=== PATIENT | male | born 1935 | race Caucasian/White ===

== ENCOUNTER → 2017-08-01 | Outpatient (CLI) | payer MEDICARE, BC ==
[2017-08-01 08:00] LABS: CHCM 34.1; HCT 43.4 % (39.0-53.0); HDW 2.36; HGB 14.8 gm/dL (13.0-17.5); MCH 34.1 pg (25.0-35.0); MCHC 34.1 g/dL (31.0-37.0); MCV 100.2 fL (80.0-100.0); Mean Platelet Volume 7.7; RBC 4.33 m/uL (4.30-5.90); RDW 13.5 % (11.5-15.5); WBC 8.2 k/uL (3.8-10.6)
[2017-08-01 08:22] LABS: ALT 30 U/L (21-72); AST 27 U/L (17-59); Alkaline Phosphatase 59 U/L (38-126); Anion Gap 10 mmol/L; Blood Urea Nitrogen 20 mg/dL (9-20); Calcium 9.2 mg/dL (8.4-10.2); Carbon Dioxide 22 mmol/L (22-30); Chloride 105 mmol/L (98-107); Cholesterol 106 mg/dL (<200); Glucose 126 mg/dL (74-99); HDL Cholesterol 51 mg/dL (40-60); Non-African American GFR(MDRD) >60 (>60 ml/min/1.73 sqM); Potassium 4.6 mmol/L (3.5-5.1); Sodium 137 mmol/L (137-145); Total Bilirubin 1.1 mg/dL (0.2-1.3); Total Protein 6.4 g/dL (6.3-8.2)
== END | disposition home or self-care (01) ==
LOC: LABWHC1 07:38
PROVIDERS: ATTEND Internal Medicine Cardiovascular Disease
DX: E78.5 Hyperlipidemia, unspecified (principal); I50.9 Heart failure, unspecified; I25.10 Atherosclerotic heart disease of native coronary artery without angina pectoris
CPT/HCPCS: 36415; 80053; 80061; 85027

== ENCOUNTER 2017-12-26 10:31 | Day surgery (SDC) | payer MEDICARE, BC ==
[2017-12-24 16:41] VITALS: BMI 29.9
[~2017-12-26 10:31] MED LIST: LACTATED RINGERS 1,000 ML IV SCH
[2017-12-26 11:28] VITALS: TEMP 98
[2017-12-26] MEDS ORDERED: LIDOCAINE 1% INJ 10MG/ML (20 ML MDV) ONE (11:33)
[2017-12-26] MEDS ORDERED: PROPOFOL 10 MG/ML 20 ML VIAL IV ONE (11:33)
--- NOTE | 2017-12-26 11:57 | P.PCN ---
Date of Procedure: 12/26/17 Procedure(s) Performed: BRIEF HISTORY: Patient is a 82-year-old pleasant [white male scheduled for an elective colonoscopy as a part of surveillance of long-standing history of ulcerative colitis. PROCEDURE PERFORMED: ColonoscopyWith biopsy. PREOPERATIVE DIAGNOSIS: long-standing history of ulcerative colitis. IV sedation per Anesthesia. PROCEDURE: After informed consent was obtained, the patient, was brought into the endoscopy unit. IV sedation was administered by Anesthesia under continuous monitoring. Digital rectal examination was normal. Initially the Olympus CF- 160 flexible video colonoscope was then inserted in the rectum, gradually advanced into the cecum without any difficulty. Careful examination was performed as the scope was gradually being withdrawn. Ileocecal valve and the appendiceal orifice were visualized and appeared normal. Prep was excellent. Mucosa of the cecum,appeared normal. In the ascending colon there was a 5 mm polyp that was removed by biopsy. The rest of the ascending colon, transverse colon, descending colon, sigmoid colon, and rectum appeared normal.random biopsies were done from every 10 cm intervals from the cecum to rectum. Scattered sigmoid diverticulosis seen. Retroflexion was performed in the rectum and no lesions were seen. The patient tolerated the procedure well. IMPRESSION: 5 mm ascending colon polyp status post removal by biopsy Scattered sigmoid diverticulosis No evidence of active colitis RECOMMENDATIONS: Findings of this examination were discussed with the patient as well as his family.he was advised to follow with the biopsy results. He will continue with current medications.
[2017-12-26 12:30] VITALS: BP 120/52; PULSE 60; RESP 16
--- NOTE | 2017-12-30 11:52 | CDI ---
Date: 12/30/17 CDS/Testing And Regulating Chief Name: Lola Espinoza Phone: If any questions, call Carmela Keenan Outreach Specialist at [phone] Patient Name: Max Betancourt Admit Date: 12/26/17 Discharge Date: 12/26/17 ATTENTION: The [facility] Coding Staff appreciate your assistance in clarifying documentation. Please respond to the clarification below the line at the bottom and electronically sign. The [facility] Coding staff will review the response and follow-up if needed. Please note: Queries are made part of the Legal Health Record. If you have any questions, please contact the Outreach Specialist. Dear Dr. Box, Please provide clarification as to what procedure was used to remove the polyp. Please clarify if it was a hot or cold biopsy. Thank you for your kind consideration. MTDD
--- NOTE | 2018-01-07 12:42 | CDI ---
Date: 01/07/18 CDS/Event Management Consultant Name: Lola Espinoza Phone: If any questions, call Carmela Keenan Administration Intern at [phone] Patient Name: Max Betancourt Admit Date: 12/26/17 Discharge Date: 12/26/17 ATTENTION: The [facility] Coding Staff appreciate your assistance in clarifying documentation. Please respond to the clarification below the line at the bottom and electronically sign. The [facility] Coding staff will review the response and follow-up if needed. Please note: Queries are made part of the Legal Health Record. If you have any questions, please contact the Administration Intern. Dear Dr. Box, Please provide clarification as to what procedure was used to remove the polyp. Please clarify if it was a hot or cold biopsy. Thank you for your kind consideration. MTDD
--- NOTE | 2018-01-09 09:58 | CDI ---
Date: 01/09/18 CDS/Harness Cleaner Name: Lola Espinoza Phone: If any questions, call Carmela Keenan Cap Cutter at [phone] Patient Name: Max Betancourt Admit Date: 12/26/17 Discharge Date: 12/26/17 ATTENTION: The [facility] Coding Staff appreciate your assistance in clarifying documentation. Please respond to the clarification below the line at the bottom and electronically sign. The [facility] Coding staff will review the response and follow-up if needed. Please note: Queries are made part of the Legal Health Record. If you have any questions, please contact the Cap Cutter. Dear Dr. Box, Please provide clarification as to what biopsy method was used to remove the polyp. Please clarify if it was a hot or cold biopsy. Thank you for your kind consideration, Thank you for your kind consideration. Cold biopsy done to remove the polyp MTDD
== END 2017-12-26 12:46 | disposition home or self-care (01) ==
LOC: ORWHC2ENDO 10:31
PROVIDERS: ATTEND Internal Medicine Gastroenterology
DX: D12.2 Benign neoplasm of ascending colon (principal); K57.30 Diverticulosis of large intestine without perforation or abscess without bleeding; K51.90 Ulcerative colitis, unspecified, without complications; K21.9 Gastro-esophageal reflux disease without esophagitis; I10 Essential (primary) hypertension; E78.5 Hyperlipidemia, unspecified; I48.91 Unspecified atrial fibrillation; Z79.01 Long term (current) use of anticoagulants; Z95.810 Presence of automatic (implantable) cardiac defibrillator; I25.2 Old myocardial infarction; G47.33 Obstructive sleep apnea (adult) (pediatric); Z99.89 Dependence on other enabling machines and devices; Z79.82 Long term (current) use of aspirin; Z79.899 Other long term (current) drug therapy
CPT/HCPCS: 88305; 45380; J2001; J2704

== ENCOUNTER → 2018-01-20 | Outpatient (CLI) | payer MEDICARE, BC ==
[2018-01-20 10:18] LABS: INR 1.1 (<1.2); Partial Thromboplastin Time 23.9 sec (22.0-30.0); Prothrombin Time 10.8 sec (9.0-12.0)
== END | disposition home or self-care (01) ==
LOC: LABWHC1 09:53
PROVIDERS: ATTEND Physical Medicine & Rehabilitation
DX: M50.121 Cervical disc disorder at C4-C5 level with radiculopathy (principal); M47.22 Other spondylosis with radiculopathy, cervical region; M43.12 Spondylolisthesis, cervical region
CPT/HCPCS: 36415; 85610; 85730

== ENCOUNTER → 2018-02-10 | Outpatient (CLI) | payer MEDICARE, BC ==
[2018-02-10 15:25] LABS: INR 1.1 (<1.2); Partial Thromboplastin Time 24.1 sec (22.0-30.0); Prothrombin Time 10.5 sec (9.0-12.0)
== END | disposition home or self-care (01) ==
LOC: LABWHC1 14:53
PROVIDERS: ATTEND Physical Medicine & Rehabilitation
DX: M50.121 Cervical disc disorder at C4-C5 level with radiculopathy (principal); M47.22 Other spondylosis with radiculopathy, cervical region; M43.12 Spondylolisthesis, cervical region
CPT/HCPCS: 36415; 85610; 85730

== ENCOUNTER → 2018-04-17 | Outpatient (CLI) | payer MEDICARE, BC ==
--- NOTE | 2018-04-17 15:04 | CT ---
EXAMINATION TYPE: CT cervical spine wo con DATE OF EXAM: 04/17/2018 COMPARISON: NONE HISTORY: Cervicalgia, spondylosis, cervical disc disorder C6-C7 with radiculopathy, cervical disc dis order C5-C6 level with radiculopathy, spondylolisthesis, and cervical disc disorder at C4-C5 level wi th radiculopathy all per order. CT DLP: 423.9 mGycm. Automated Exposure Control for Dose Reduction was Utilized. TECHNIQUE: CT scan of the cervical spine is obtained without contrast, axial images are obtained, sa gittal and coronal reformatted images are also reviewed. FINDINGS: Cervical spine is visualized in its entirety from C1 through upper thoracic levels, demonst rates levoconvex scoliosis centered in the mid cervical spine without evidence of acute fracture or d islocation. Prevertebral soft tissue appears within normal limits. The C1-C2 articulation is within normal limits on the coronal images. Vertebral body heights are maintained. There is moderate disc space narrowing right C4-C5 level with spurring and endplate sclerosis. There is mild to moderate disc space narrowing C5-C6 level. There is moderate to advanced disc space narrowing most prominent posterior left C6-C7 level on sagittal imag es. Review of axial images at C2-C3 level show some uncovertebral facet degenerative changes bilaterally, bilateral neural foramina are patent. There is central disc protrusion effacing anterior thecal sac on axial image 28. Axial images at C3-C4 level show right sided uncovertebral facet degenerative changes causing moderat e to advanced right-sided neural foraminal narrowing. Left-sided neural foramen is patent. Spinal can al is preserved. Axial images at C4-C5 level show posterior spur disc on flex effacing anterior thecal sac on axial im age 44. There is marginal spurring and right-sided uncovertebral facet degenerative changes causing a dvanced right-sided neural foraminal narrowing. Left-sided neural foramen is patent. Axial images at C5-C6 level show right-sided uncovertebral facet degenerative changes causing mild to moderate right greater than left neural foraminal narrowing. Spinal canal is preserved. Axial images at C6-C7 level show right-sided uncovertebral facet degenerative changes and left parace ntral/foraminal spur disc complex, this causes advanced left-sided neural foraminal narrowing on axia l image 55 and effacement of anterolateral thecal sac. There is more mild right-sided neural foramina l narrowing noted. Axial images at C7-T1 level are felt within normal limits. Thyroid gland is felt within normal limits. Visualized lung apices are clear. There is mild to modera te calcified plaque in both carotid arteries most prominent near left carotid bulb. There is prominen t extra-axial CSF in the visualized posterior fossa, left greater than right could reflect arachnoid cyst at this level in the superiormost axial images. IMPRESSION: Scoliotic curvature with multilevel degenerative changes as detailed above.
== END ==
LOC: RADCTMAIN 13:26
PROVIDERS: ATTEND Physical Medicine & Rehabilitation
DX: M41.9 Scoliosis, unspecified (principal); M48.02 Spinal stenosis, cervical region; M50.21 Other cervical disc displacement, high cervical region
CPT/HCPCS: 72125

== ENCOUNTER → 2018-04-21 | Outpatient (CLI) | payer MEDICARE, BC ==
[2018-04-21 11:20] LABS: ALT 39 U/L (21-72); AST 30 U/L (17-59); Albumin 4.1 g/dL (3.5-5.0); Alkaline Phosphatase 58 U/L (38-126); Anion Gap 12 mmol/L; Blood Urea Nitrogen 11 mg/dL (9-20); Calcium 9.2 mg/dL (8.4-10.2); Carbon Dioxide 25 mmol/L (22-30); Chloride 101 mmol/L (98-107); Cholesterol 95 mg/dL (<200); Glucose 106 mg/dL (74-99); HDL Cholesterol 54 mg/dL (40-60); LDL Cholesterol,Calculated 28 mg/dL (0-99); Potassium 4.6 mmol/L (3.5-5.1); Sodium 138 mmol/L (137-145); Total Bilirubin 0.9 mg/dL (0.2-1.3); Total Protein 5.8 g/dL (6.3-8.2); Triglycerides 63 mg/dL (<150)
[2018-04-21 11:38] LABS: Basophils % (A) 0 %; Eosinophils # (A) 0.2 k/uL (0-0.7); Eosinophils % (A) 3 %; HCT 41.9 % (39.0-53.0); Lymphocytes # (A) 1.5 k/uL (1.0-4.8); Lymphocytes % (A) 18 %; MCH 33.1 pg (25.0-35.0); MCHC 33.5 g/dL (31.0-37.0); MCV 98.6 fL (80.0-100.0); Mean Platelet Volume 7.4; Monocytes # (A) 0.6 k/uL (0-1.0); Monocytes % (A) 8 %; Neutrophils # (A) 5.3 k/uL (1.3-7.7); Neutrophils % (A) 66 %; Platelet Count 182 k/uL (150-450); RBC 4.25 m/uL (4.30-5.90); RDW 12.9 % (11.5-15.5)
== END | disposition home or self-care (01) ==
LOC: LABWHC1 10:08
PROVIDERS: ATTEND Internal Medicine Cardiovascular Disease
DX: I25.10 Atherosclerotic heart disease of native coronary artery without angina pectoris (principal); E78.5 Hyperlipidemia, unspecified
CPT/HCPCS: 36415; 80053; 80061; 85025

== ENCOUNTER → 2018-07-09 | Outpatient (CLI) | payer MEDICARE, BC | END | disposition home or self-care (01) | LOC: LABWHC1 09:37 | PROVIDERS: ATTEND Internal Medicine Gastroenterology | DX: R19.7 Diarrhea, unspecified (principal) | CPT/HCPCS: 83630; 87045; 87046; 87324; 87328; 87329 ==

== ENCOUNTER → 2018-09-01 | Outpatient (CLI) | payer MEDICARE, BC ==
[2018-09-01 12:47] LABS: INR 4.2 (<1.2); Prothrombin Time 37.4 sec (9.0-12.0)
== END ==
LOC: LABWHC1 11:39
PROVIDERS: ATTEND Internal Medicine Cardiovascular Disease
DX: I48.91 Unspecified atrial fibrillation (principal)
CPT/HCPCS: 36415; 85610

== ENCOUNTER 2018-10-10 09:57 | Observation (INO) | payer MEDICARE, BC ==
[2018-10-10] MEDS ORDERED: SODIUM CHLORIDE 0.9% 1,000 ML IV STA (10:41)
[2018-10-10 11:23] LABS: Basophils % (A) 0 %; Eosinophils # (A) 0.2 k/uL (0-0.7); Eosinophils % (A) 2 %; Lymphocytes # (A) 1.2 k/uL (1.0-4.8); Lymphocytes % (A) 14 %; MCH 32.2 pg (25.0-35.0); MCHC 32.5 g/dL (31.0-37.0); MCV 98.8 fL (80.0-100.0); Mean Platelet Volume 7.5; Monocytes # (A) 0.7 k/uL (0-1.0); Monocytes % (A) 7 %; Neutrophils # (A) 6.7 k/uL (1.3-7.7); Neutrophils % (A) 73 %; Platelet Count 206 k/uL (150-450); RBC 3.74 m/uL (4.30-5.90); RDW 13.3 % (11.5-15.5); WBC 9.2 k/uL (3.8-10.6)
[2018-10-10 11:27] LABS: INR 3.3 (<1.2); Partial Thromboplastin Time 35.6 sec (22.0-30.0); Prothrombin Time 29.6 sec (9.0-12.0)
[2018-10-10 11:40] LABS: ALT 28 U/L (21-72); AST 28 U/L (17-59); Albumin 3.1 g/dL (3.5-5.0); Alkaline Phosphatase 59 U/L (38-126); Anion Gap 6 mmol/L; Blood Urea Nitrogen 13 mg/dL (9-20); Calcium 8.8 mg/dL (8.4-10.2); Carbon Dioxide 23 mmol/L (22-30); Chloride 107 mmol/L (98-107); Glucose 110 mg/dL (74-99); Potassium 4.2 mmol/L (3.5-5.1); Sodium 136 mmol/L (137-145); Total Bilirubin 1.6 mg/dL (0.2-1.3); Total Protein 5.4 g/dL (6.3-8.2)
[2018-10-10 11:44] LABS: Appearance,Urine Clear (Clear); Bilirubin,Urine 1+ (Negative); Blood,Urine Negative (Negative); Color,Urine Dark Yellow; Glucose,Urine (UA) Negative (Negative); Ketones,Urine Negative (Negative); Leukocyte Esterase,Urine Negative (Negative); Nitrite,Urine Negative (Negative); Protein,Urine Trace (Negative); Specific Gravity,Urine 1.022 (1.001-1.035)
--- NOTE | 2018-10-10 11:48 | ED ---
General Adult HPI - General Chief complaint: Abdominal Pain Stated complaint: abdominal pain Time Seen by Provider: 10/10/18 10:30 Source: patient, RN notes reviewed Mode of arrival: ambulatory Limitations: no limitations - History of Present Illness Initial comments: Patient's an 83-year-old male presented to the emergency room today with a chief complaint of abdominal pain over the last week. Patient does admit that he's had some lower abdominal pain has been constant for a week. He states that [place] He states he thought he just pulled some muscles. He does admit that he is on Coumadin due to a stent in his heart. Patient states that he did notice some blood on the lower pelvis 2 days ago. Patient states that he doesn't know if any specific injury to the area. Patient advised to watch her symptoms. Patient denies any recent fever, chills, shortness of breath, chest pain, back pain, nausea or vomiting, numbness or tingling, dysuria or hematuria, constipation or diarrhea, headaches or visual changes, or any other complaints. - Related Data Home Medications Medication Instructions Recorded Confirmed Atorvastatin [Lipitor] 80 mg PO HS 06/16/14 12/26/17 Carvedilol [Coreg] 6.25 mg PO BID 06/16/14 12/24/17 Famotidine [Pepcid] 10 mg PO DAILY 06/16/14 12/26/17 LORazepam [Ativan] 0.5 mg PO DAILY@0800 06/16/14 12/24/17 Multivitamins, Thera [Multivitamin 1 tab PO DAILY 06/16/14 12/24/17 (formulary)] Nitroglycerin Sl Tabs [Nitrostat] 0.4 mg SUBLINGUAL DIRECTED PRN 06/16/1406/03 Spironolactone [Aldactone] 25 mg PO DAILY@0800 06/16/14 12/24/17 Warfarin [Coumadin] 0.5 mg PO BONNIETUTHFRSA 06/16/14 12/24/17 Warfarin [Coumadin] 1 mg PO WE 06/16/14 12/24/17 Aspirin EC [Ecotrin Low Dose] 81 mg PO DAILY@0800 10/03/16 12/24/17 Balsalazide Disodium 3 tab PO BID 12/24/17 12/26/17 Sacubitril/Valsartan [Entresto 24 1 each PO BID 12/24/17 12/24/17 mg-26 mg Tablet] Allergies Allergy/AdvReac Type Severity Reaction Status Date / Time No Known Allergies Allergy Verified 10/10/18 10:09 Review of Systems ROS Statement: Those systems with pertinent positive or pertinent negative responses have been documented in the HPI. ROS Other: All systems not noted in ROS Statement are negative. Past Medical History Past Medical History: Atrial Fibrillation, GI Bleed, Hyperlipidemia, Myocardial Infarction (CT), Sleep Apnea/CPAP/BIPAP Additional Past Medical History / Comment(s): sob with activity, colitis, arthritis, EF of 25, pace maker/defib,uses cpap,dizziness at times Last Myocardial Infarction Date:: 2007 History of Any Multi-Drug Resistant Organisms: None Reported Past Surgical History: AICD, Heart Catheterization With Stent, Joint Replacement , Pacemaker Additional Past Surgical History / Comment(s): anali knee replacments, rt shoulder rotator cuff, cataracts Past Anesthesia/Blood Transfusion Reactions: No Reported Reaction Additional Past Anesthesia/Blood Transfusion Reaction / Comment(s): father had reaction to blood transfusion Date of Last Stent Placement:: 2007 Type of Cardiac Device: Permanent Pacemaker, AICD Device Placement Date:: [facility] Past Psychological History: Anxiety Smoking Status: Never smoker - Past Family History Father Family Medical History: Cancer General Exam - General Exam Comments Initial Comments: General: The patient is awake and alert, in no distress, and does not appear acutely ill. Eye: Pupils are equal, round and reactive to light. Extra-ocular movements are intact. No nystagmus. There is normal conjunctiva bilaterally. No signs of icterus. Ears, nose, mouth and throat: There are moist mucous membranes and no oral lesions. Neck: The neck is supple, there is no tenderness or JVD. Cardiovascular: There is a regular rate and rhythm. No murmur, rub or gallop is appreciated. Respiratory: Lungs are clear to auscultation, respirations are non-labored, breath sounds are equal. No wheezes, stridor, rales, or rhonchi. Gastrointestinal: Soft on palpation. Mild tenderness right lower quadrant and suprapubic over the bladder. There is bruising purple in color abdominal or pelvis. No rebound, guarding or CVA tenderness. Musculoskeletal: Normal ROM, no tenderness. Sensation intact. Strength 5/5. Pulses equal bilaterally 2+. Neurological: A&O x 3. CN II-XII intact, There are no obvious motor or sensory deficits. Coordination appears grossly intact. Speech is normal. Skin: Skin is warm and dry and no rashes or lesions are noted. Psychiatric: Cooperative, appropriate mood & affect, normal judgment. Limitations: no limitations Course Vital Signs 10/10/18 10/10/18 10:06 12:52 Temperature 97.5 F L 97.8 F Pulse Rate 64 63 Respiratory 18 18 Rate Blood Pressure 113/79 104/67 O2 Sat by Pulse 95 95 Oximetry Medical Decision Making - Medical Decision Making Patient's reexamined at this time shows no signs of distress. Denies any known trauma. Is on Coumadin. INR 3.3. Hemoglobin is 12. CT abdomen and pelvis reviewed does show a rectal sheath hematoma. Patient given 5 mg of vitamin K orally here in the emergency room and started on Kcentra. Patient will be admitted to the hospital. - Lab Data Result diagrams: 10/10/18 11:01 10/10/18 11:01 Lab Results 10/10/18 10/10/18 10/10/18 Range/Units 11:01 11:01 11:01 WBC 9.2 (3.8-10.6) k/uL RBC 3.74 L (4.30-5.90) m/uL Hgb 12.0 L (13.0-17.5) gm/dL Hct 37.0 L (39.0-53.0) % MCV 98.8 (80.0-100.0) fL MCH 32.2 (25.0-35.0) pg MCHC 32.5 (31.0-37.0) g/dL RDW 13.3 (11.5-15.5) % Plt Count 206 (150-450) k/uL Neutrophils % 73 % Lymphocytes % 14 % Monocytes % 7 % Eosinophils % 2 % Basophils % 0 % Neutrophils # 6.7 (1.3-7.7) k/uL Lymphocytes # 1.2 (1.0-4.8) k/uL Monocytes # 0.7 (0-1.0) k/uL Eosinophils # 0.2 (0-0.7) k/uL Basophils # 0.0 (0-0.2) k/uL PT 29.6 H (9.0-12.0) sec INR 3.3 H (<1.2) APTT 35.6 H (22.0-30.0) sec Sodium 136 L (137-145) mmol/L Potassium 4.2 (3.5-5.1) mmol/L Chloride 107 (98-107) mmol/L Carbon Dioxide 23 (22-30) mmol/L Anion Gap 6 mmol/L BUN 13 (9-20) mg/dL Creatinine 0.84 (0.66-1.25) mg/dL Est GFR (CKD-EPI)AfAm >90 (>60 ml/min/1.73 sqM) Est GFR (CKD-EPI)NonAf 82 (>60 ml/min/1.73 sqM) Glucose 110 H (74-99) mg/dL Calcium 8.8 (8.4-10.2) mg/dL Total Bilirubin 1.6 H (0.2-1.3) mg/dL AST 28 (17-59) U/L ALT 28 (21-72) U/L Alkaline Phosphatase 59 (38-126) U/L Total Protein 5.4 L (6.3-8.2) g/dL Albumin 3.1 L (3.5-5.0) g/dL Urine Color Urine Appearance (Clear) Urine pH (5.0-8.0) Ur Specific [place] (1.001-1.035) Urine Protein (Negative) Urine Glucose (UA) (Negative) Urine Ketones (Negative) Urine Blood (Negative) Urine Nitrite (Negative) Urine Bilirubin (Negative) Urine Urobilinogen (<2.0) mg/dL Ur Leukocyte Esterase (Negative) 10/10/18 Range/Units 11:30 WBC (3.8-10.6) k/uL RBC (4.30-5.90) m/uL Hgb (13.0-17.5) gm/dL Hct (39.0-53.0) % MCV (80.0-100.0) fL MCH (25.0-35.0) pg MCHC (31.0-37.0) g/dL RDW (11.5-15.5) % Plt Count (150-450) k/uL Neutrophils % % Lymphocytes % % Monocytes % % Eosinophils % % Basophils % % Neutrophils # (1.3-7.7) k/uL Lymphocytes # (1.0-4.8) k/uL Monocytes # (0-1.0) k/uL Eosinophils # (0-0.7) k/uL Basophils # (0-0.2) k/uL PT (9.0-12.0) sec INR (<1.2) APTT (22.0-30.0) sec Sodium (137-145) mmol/L Potassium (3.5-5.1) mmol/L Chloride (98-107) mmol/L Carbon Dioxide (22-30) mmol/L Anion Gap mmol/L BUN (9-20) mg/dL Creatinine (0.66-1.25) mg/dL Est GFR (CKD-EPI)AfAm (>60 ml/min/1.73 sqM) Est GFR (CKD-EPI)NonAf (>60 ml/min/1.73 sqM) Glucose (74-99) mg/dL Calcium (8.4-10.2) mg/dL Total Bilirubin (0.2-1.3) mg/dL AST (17-59) U/L ALT (21-72) U/L Alkaline Phosphatase (38-126) U/L Total Protein (6.3-8.2) g/dL Albumin (3.5-5.0) g/dL Urine Color Dark Yellow Urine Appearance Clear (Clear) Urine pH 6.0 (5.0-8.0) Ur Specific [place] 1.022 (1.001-1.035) Urine Protein Trace H (Negative) Urine Glucose (UA) Negative (Negative) Urine Ketones Negative (Negative) Urine Blood Negative (Negative) Urine Nitrite Negative (Negative) Urine Bilirubin 1+ H (Negative) Urine Urobilinogen 2.0 (<2.0) mg/dL Ur Leukocyte Esterase Negative (Negative) Disposition Clinical Impression: Abdominal wall hematoma, Supratherapeutic INR Disposition: ADMITTED IP TO THIS HOSP Condition: Stable Is patient prescribed a controlled substance at d/c from ED?: No Referrals: Leo Matthews MD [Primary Care Provider] - 1-2 days Time of Disposition: 13:12
--- NOTE | 2018-10-10 12:38 | CT ---
EXAMINATION TYPE: CT abdomen pelvis w con DATE OF EXAM: 10/10/2018 COMPARISON: None HISTORY: Bruising and pain to right groin area CT DLP: 956.9 mGycm, Automated Exposure Control for Dose Reduction was Utilized. CONTRAST: CT scan of the abdomen and pelvis is performed without oral but with IV Contrast, patient injected wi th 100 mL of Isovue 300. FINDINGS: LUNG BASES: Cardiomegaly with dual lead pacemaker/AICD is partially visualized. There is dependent at electasis in both bases. There is calcification at level of aortic valve LIVER/GB: No significant abnormality is appreciated. PANCREAS: No significant abnormality is seen. SPLEEN: There is 1.4 cm splenule anterior inferior spleen on axial image 27. ADRENALS: No significant abnormality is seen. KIDNEYS: There is simple appearing 1.9 cm exophytic cyst laterally mid pole level left kidney. BOWEL: There is 2.0 cm diverticulum near junction of second and third portion of duodenum coronal jacki ge 47. There are prominent diverticula in the left and sigmoid colon without CT evidence for acute di verticulitis. There is no suspicious small or large bowel dilatation. PROSTATE/SEMINAL VESICLES: No gross abnormality seen. LYMPH NODES: No greater than 1cm abdominal or pelvic lymph nodes are appreciated. OSSEOUS STRUCTURES: Dextroconvex scoliosis is present. There is moderate to severe multilevel spurrin g and disc space narrowing throughout the thoracolumbar spine. There is grade 1 anterolisthesis of L3 on L4 and L4 on L5 and grade 1 retrolisthesis of L2 on L3 noted. OTHER: There is spontaneous moderate size acute right sheath hematoma axial image 73 measuring roughl y 7 cm craniocaudal dimension by 7 cm transversely by 5.0 cm AP diameter. IMPRESSION: There is moderate size acute rectus sheath hematoma at level of mid to lower pelvis as de tailed above.
[2018-10-10] MEDS ORDERED: Kcentra PER PHARMACY 1 EACH MISC MISCELLANE PRN (13:01)
[2018-10-10] MEDS ORDERED: PHYTONADIONE ORAL 5 MG/5 ML ORAL.SYRG PO STA (13:01)
[2018-10-10] MEDS ORDERED: PHYTONADIONE 10 MG in SODIUM CHLORIDE 0.9% 50 ML IVPB STA (13:10)
[2018-10-10] MEDS ORDERED: NALOXONE 0.4 MG/ML 1 ML VIAL IV PRN (13:13)
[2018-10-10] MEDS ORDERED: HUMAN PROTHROMBIN COMPLX IV ONE (13:15)
[2018-10-10] MEDS ORDERED: HUMAN PROTHROMBIN COMPLX 500 UNIT/16 ML VIAL IV ONE (13:34)
[2018-10-10 15:02] VITALS: BMI 28.8
[2018-10-10] MEDS ORDERED: NITROGLYCERIN SL TABS 0.4 MG TAB SUBLINGUAL PRN (18:38)
[2018-10-10] MEDS ORDERED: ALPRAZolam 0.25 MG TAB PO PRN (18:39)
[2018-10-10] MEDS ORDERED: TEMAZEPAM 15 MG CAP PO PRN (18:39)
[2018-10-10] MEDS ORDERED: ACETAMINOPHEN TAB 500 MG TAB PO PRN (18:39)
[2018-10-10 19:02] LABS: HCT 35.4 % (39.0-53.0); HGB 11.9 gm/dL (13.0-17.5); MCH 33.2 pg (25.0-35.0); MCHC 33.7 g/dL (31.0-37.0); MCV 98.3 fL (80.0-100.0); Mean Platelet Volume 7.3; Platelet Count 199 k/uL (150-450); RDW 13.5 % (11.5-15.5); WBC 8.1 k/uL (3.8-10.6)
[2018-10-10 19:24] LABS: Anisocytosis (M) Present; Band Neutrophils % 5 %; Eosinophils # (M) 0.24 k/uL (0-0.7); Lymphocytes # (M) 1.54 k/uL (1.0-4.8); Monocytes # (M) 0.41 k/uL (0-1.0); Neutrophils % (M) 68 %; Nucleated Red Blood Cells 0 /100 WBC (0-0); Total Cells Counted 100
[2018-10-10] MEDS: ATORVASTATIN 80 MG TAB PO SCH (20:51)
[2018-10-10] MEDS: SACUBITRIL/VALSARTAN 24 MG-26 MG TABLET PO SCH (22:35)
[2018-10-10] MEDS: BALSALAZIDE DISODIUM 750 MG CAPSULE PO SCH (22:35)
--- NOTE | 2018-10-10 22:38 | HP ---
HISTORY AND PHYSICAL DATE OF SERVICE: 10/10/2018. I am covering for Dr. Matthews. CHIEF COMPLAINT: Lower abdominal pain and hematoma. HISTORY OF PRESENT ILLNESS: This 83-year-old gentleman with a past medical history of multiple medical problems including atrial fibrillation, history of gastrointestinal bleed, history of myocardial infarction, history of sleep apnea, CPAP, BiPAP history of AICD, CAD with stent , being followed by Dr. Matthews in the outpatient setting, [place] The patient had some heavy work also occasionally. After coming back the patient noticed some ecchymosis in the lower part of the abdomen extending into the perineal area including the scrotum as well as some pain. Patient came to [facility] and was admitted for evaluation and treatment. CT scan of the abdomen showed evidence of moderate-size acute rectus sheath hematoma at the level of mid to lower pelvis. The INR was elevated up to 2.3. Vitamin K has been given. There is no history of any fevers or rigors, no history of headache, loss of consciousness, or seizures. PAST MEDICAL HISTORY: History of atrial fibrillation, history of GI bleed, hyperlipidemia, myocardial infarction, sleep apnea, history of AICD, CAD, stent. MEDICATIONS: Prior to admission home medications are: 1. Coumadin 2.5 mg on Friday, Friday, , Friday, Friday. 2. Coumadin 5 mg at bedtime. 3. Aldactone 25 mg p.o. daily. 4. Entresto 25/26 1 p.o. b.i.d. 5. Nitrostat 0.4 mg p.r.n. 6. Multivitamins 1 p.o. daily. 7. Ativan 0.5 mg p.o. daily. 8. Pepcid 10 mg p.o. daily. 9. Cymbalta 30 mg p.o. daily. 10.Coreg 6.25 mg p.o. b.i.d. 11.Balsalazide 1500 mg p.o. b.i.d. 12.Lipitor 80 mg at bedtime. 13.Ecotrin 81 mg p.o. daily. ALLERGIES: None. FAMILY HISTORY: Cancer in the family. SOCIAL HISTORY: No smoking. Occasional alcohol intake. REVIEW OF SYSTEMS: ENT: No diminished hearing or vision. CARDIOVASCULAR: No angina. RESPIRATORY: No cough. GI: No nausea. : No dysuria. NERVOUS SYSTEM: No numbness or weakness. ALLERGY: No asthma. MUSCULOSKELETAL: As mentioned. HEMATOLOGY: As mentioned. ENDOCRINE: As mentioned. NERVOUS SYSTEM: No loss of consciousness. PSYCHIATRY: As mentioned earlier. PHYSICAL EXAMINATION: Alert, oriented x3, pulse 56, blood pressure 100/60, respirations 18, temperature 97.4, pulse ox 94% on room air. HEENT: Conjunctivae normal. Oral mucosa moist. NECK: No jugular venous distention. No carotid bruit. No lymph node enlargement. CARDIOVASCULAR: S1, S2 muffled. RESPIRATORY: Breath sounds diminished in the bases. No rhonchi. No crackles. ABDOMEN: Soft. Mild diffuse tenderness in the lower part of the abdomen. Ecchymoses in the lower part of the abdomen, perineal area as well as scrotum also. No guarding. No rigidity in the abdomen. Bowel sounds diminished. LEGS: No edema, no swelling. NERVOUS SYSTEM: Higher functions as mentioned earlier. Moves all 4 limbs equally. LYMPHATICS: No lymph nodes palpable in the neck, axillae or groin. SKIN: No rash. LAB STUDIES: WBC 9.3, hemoglobin 12, INR 3.3. Albumin is 1.6. UA noted. ASSESSMENT: 1. Bilateral lower abdominal pain with acute bilateral rectus sheath hematoma. 2. Mild Coumadin coagulopathy. 3. Atrial fibrillation. 4. History of gastrointestinal bleed. 5. Hyperlipidemia. 6. History of myocardial infarction. 7. History of sleep apnea. 8. History of colitis. 9. History of degenerative joint disease. 10.History of AICD. 11.History of CAD with stent. 12.History of anxiety. RECOMMENDATIONS: In this 83-year-old gentleman who presented with multiple complex medical issues , we will monitor the patient closely, continue current management. I recommend hold the Coumadin. was recommended in the ER. We will continue to monitor. Otherwise, I would also recommend evaluation per Dr. Perez and continue to monitor. Otherwise, prognosis guarded because of multiple complex medical issues. See orders for further details. Will also hold aspirin. Further recommendations to follow. We will monitor the patient on telemetry. MMODL / IJN: [id number] / MTDD
[2018-10-11 07:49] LABS: HCT 34.9 % (39.0-53.0); HGB 11.2 gm/dL (13.0-17.5); MCH 32.4 pg (25.0-35.0); MCHC 32.2 g/dL (31.0-37.0); MCV 100.7 fL (80.0-100.0); Mean Platelet Volume 7.2; Platelet Count 204 k/uL (150-450); RBC 3.46 m/uL (4.30-5.90); RDW 13.4 % (11.5-15.5); WBC 7.9 k/uL (3.8-10.6)
[2018-10-11 07:55] LABS: INR 1.1 (<1.2); Prothrombin Time 11.1 sec (9.0-12.0)
[2018-10-11 08:05] LABS: ALT 24 U/L (21-72); AST 22 U/L (17-59); Albumin 2.7 g/dL (3.5-5.0); Alkaline Phosphatase 57 U/L (38-126); Anion Gap 8 mmol/L; Blood Urea Nitrogen 11 mg/dL (9-20); Calcium 8.4 mg/dL (8.4-10.2); Carbon Dioxide 20 mmol/L (22-30); Chloride 108 mmol/L (98-107); Glucose 75 mg/dL (74-99); Potassium 4.1 mmol/L (3.5-5.1); Sodium 136 mmol/L (137-145); Total Bilirubin 1.8 mg/dL (0.2-1.3); Total Protein 4.8 g/dL (6.3-8.2)
[2018-10-11] MEDS: PANTOPRAZOLE 40 MG TABLET PO SCH (08:51)
[2018-10-11] MEDS: LORazepam 0.5 MG TAB PO SCH (08:51)
[2018-10-11] MEDS: BALSALAZIDE DISODIUM 750 MG CAPSULE PO SCH ×2 (08:52→20:45)
[2018-10-11] MEDS: SPIRONOLACTONE 25 MG TAB PO SCH (08:52)
[2018-10-11] MEDS: CARVEDILOL 6.25 MG TAB PO SCH ×2 (08:52→17:28)
[2018-10-11] MEDS: DULoxetine HCL 30 MG CAPSULE.DR PO SCH (08:53)
[2018-10-11] MEDS ORDERED: FAMOTIDINE 20 MG TAB PO SCH (09:00)
[2018-10-11] MEDS: SACUBITRIL/VALSARTAN 24 MG-26 MG TABLET PO SCH (10:08)
[2018-10-11] MEDS: MULTIVITAMINS, THERA 1 EACH TAB PO SCH (11:39)
[2018-10-11 11:45] LABS: Eosinophils # (M) 0.32 k/uL (0-0.7); Lymphocytes # (M) 1.42 k/uL (1.0-4.8); Monocytes # (M) 0.87 k/uL (0-1.0); Neutrophils # (M) 5.29 k/uL (1.3-7.7); Neutrophils % (M) 67 %; Nucleated Red Blood Cells 0 /100 WBC (0-0); Total Cells Counted 100
--- NOTE | 2018-10-11 13:48 | CONS ---
CONSULTATION Mr. Betancourt is an 83-year-old male with known history of atrial fibrillation, history of ischemic cardiomyopathy, status post ICD implantation as well history of PCI 7 years ago who about [place] and has complaint of some discomfort in the lower abdomen. Upon his return at home and looking in the mirror he saw evidence of ecchymoses and came into the emergency room and underwent a CT scan of the abdomen and was found to have a moderate sized recto sheath hematoma at the mid to lower pelvis. He denies any change in his breathing. He denies any chest pain. He denies any dizziness or palpitation. He denies any nausea. His activity level is stable. His coronary risk factors are positive for history of hypertension and hyperlipidemia. He is nondiabetic, nonsmoker. MEDICATION: At home included Coumadin, Aldactone 25 mg daily and Entresto 25-26 mg daily, Cymbalta, Coreg 6.5 mg twice a day, Lipitor 10 mg daily and aspirin 81 mg daily. REVIEW OF SYSTEMS: RESPIRATORY system: He has no recent wheezing. No cough. No history of obstructive lung disease. GI system: He had a history of diarrhea. He has been followed by Dr. Box. No GI bleeding. system: No dysuria or hematuria. Nervous system: No stroke or seizure. PHYSICAL EXAMINATION: He is an 83-year-old male, alert, oriented, in no apparent distress. Blood pressure 118/72 with the heart in the 60s. HEAD: Normocephalic. Eyes sclerae anicteric. Neck: Good carotid upstroke. No bruit. No jugular venous distention. LUNGS: Clear to auscultation. HEART: Regular rate and rhythm S1, S2. No S3 with a systolic ejection murmur. No diastolic murmur. No rub. ABDOMEN: Soft. Mild tenderness in lower abdomen with ecchymosis noted. Positive bowel sounds. EXTREMITIES: No edema. LAB DATA: Revealed BUN and creatinine 11 and 0.76. His INR on presentation was 3.3, it is down to 1.1 today. His hemoglobin was 12 on admission and 11.2 today. His EKG revealed a sinus mechanism with borderline first-degree AV block and IVCD. IMPRESSION: 1. Rectus sheath hematoma, patient was anticoagulated. 2. History of ischemic cardiomyopathy, stable with no evidence of congestive heart failure. 3. Status post ICD implantation. 4. History of coronary artery disease. 5. Hypertension. 6. Hyperlipidemia. RECOMMENDATIONS: I agree with your plan of holding anticoagulation at this time. We will continue present therapy. From the cardiac standpoint, he is stable to be discharged home and follow up as an outpatient with Dr. Cunha and make a decision at that time to reinitiate anticoagulation. The patient has a history of atrial fibrillation, but he continues to be in sinus mechanism at this time. Thank you for this consult. We will see him on as needed basis. Please feel free to call us for any questions. MMODL / IJN: [id number] /
[2018-10-11] MEDS: SODIUM CHLORIDE 0.9% 1,000 ML IV SCH (13:56)
[2018-10-11] MEDS: ATORVASTATIN 80 MG TAB PO SCH (20:45)
[2018-10-11] MEDS: BACITRACIN 500 UNIT/GM OINT 28.4 GM TUBE TOPICAL SCH (20:45)
--- NOTE | 2018-10-11 23:24 | PN ---
PROGRESS NOTE DATE OF SERVICE: 10/11/2018 I am covering for Dr. Matthews. This 83-year-old gentleman admitted with significant abdominal pain with hematoma is being closely monitored at this time. The patient also was seen by Cardiology. Patient had Coumadin coagulopathy at 3.3 which reversed to 1.1 and sodium is 136. Albumin is 2.7. PAST MEDICAL HISTORY: Reviewed. REVIEW OF SYSTEMS: CARDIOVASCULAR: No angina or palpitations. Respiration: As mentioned earlier. GI as mentioned earlier. No dysuria. Musculoskeletal as mentioned earlier. Hematology/Oncology: As mentioned earlier. CURRENT MEDICATIONS: Reviewed and include: 1. Tylenol 500 mg q.6h p.r.n. 2. Xanax 0.25 t.i.d. 3. Lipitor 80 mg q.h.s. 4. Bacitracin. 5. 15 mg p.o. b.i.d. 6. Coreg 6.25 mg p.o. b.i.d. 7. Cymbalta 30 mg p.o. daily. 8. Ativan 0.5 mg daily. 10.Multivitamins one p.o. daily. 11.Narcan. 12.Nitrostat. 13.Protonix. 14.Entresto. 15.Aldactone. 16.Restoril. PHYSICAL EXAMINATION: On physical exam, patient is alert, oriented x3, pulse 63, blood pressure 100/61 , respiration 18, temperature 98.5, pulse ox 98% on room air. HEENT: Conjunctivae normal. Oral mucosa moist. Neck is no jugular venous distention. No carotid bruit. No lymph node enlargement. Cardiovascular: S1, S2 muffled. Respiratory: Breath sounds diminished in the bases. A few scattered rhonchi and crackles. ABDOMEN: Soft, minimal tenderness in the lower part of the abdomen. Significant ecchymosis present. Tenderness present. Ecchymosis of the perineal region area also present. Nervous system: No focal deficits. LABS: WBC 7.2, hemoglobin 11.2, INR 1.1. ASSESSMENT: 1. Bilateral lower abdominal pain with acute bilateral rectus sheath hematoma. 2. Mild Coumadin coagulopathy. 3. Atrial fibrillation. 4. History of gastrointestinal bleed. 5. Hyperlipidemia. 6. History of myocardial infarction. 7. History of sleep apnea. 8. History of colitis. 9. History of degenerative joint disease. 10.History of AICD. 11.History of coronary artery disease, stent. 12.History of anxiety. RECOMMENDATIONS AND DISCUSSION: Recommend to continue current medications, management and symptomatic treatment. Otherwise, at this time, we will continue to monitor. Guarded prognosis because of multiple complex medical issues. Further recommendations to follow. MMODL / IJN: [id number] / MTDD
[2018-10-12] MEDS: SACUBITRIL/VALSARTAN 24 MG-26 MG TABLET PO SCH ×2 (00:20→07:49)
[2018-10-12] MEDS: PANTOPRAZOLE 40 MG TABLET PO SCH (07:49)
[2018-10-12] MEDS: BALSALAZIDE DISODIUM 750 MG CAPSULE PO SCH (07:49)
[2018-10-12] MEDS: LORazepam 0.5 MG TAB PO SCH (07:49)
[2018-10-12] MEDS: CARVEDILOL 6.25 MG TAB PO SCH (07:49)
[2018-10-12] MEDS: SPIRONOLACTONE 25 MG TAB PO SCH (07:49)
--- NOTE | 2018-10-12 07:49 | P.DS ---
Providers Date of admission: 10/10/18 13:13 Attending physician: Leo Matthews Consults: 10/10/18 18:40 Consult Physician Routine Consulting Provider: Capri Cunha Consult Reason/Comments: afib Do you want consulting provider notified?: Yes Primary care physician: Leo Matthews Hospital Course: This discharge summary age 3-year-old white male essentially admitted for rectus abdominis sheath hematoma. The patient was stabilized with his anticoagulation and will be sent home off of anticoagulants. He has no history of fibrillation cardiac myopathy AICD placement. The patient is now stable but has had a fall during this hospitalization. I will go ahead and ask home health agency to follow-up with the patient to do safety evaluation at home. He does not typically use adaptive/assistive devices. But he is sent home in stable condition at this time. Patient Condition at Discharge: Stable Plan - Discharge Summary Discharge Rx Participant: No New Discharge Prescriptions: Continue Nitroglycerin Sl Tabs [Nitrostat] 0.4 mg SUBLINGUAL DIRECTED PRN PRN Reason: Chest Pain Spironolactone [Aldactone] 25 mg PO DAILY@0800 LORazepam [Ativan] 0.5 mg PO DAILY@0800 Famotidine [Pepcid] 10 mg PO DAILY Carvedilol [Coreg] 6.25 mg PO BID Atorvastatin [Lipitor] 80 mg PO HS Multivitamins, Thera [Multivitamin (formulary)] 1 tab PO DAILY Aspirin EC [Ecotrin Low Dose] 81 mg PO DAILY@0800 Sacubitril/Valsartan [Entresto 24 mg-26 mg Tablet] 1 tab PO BID Balsalazide Disodium 1,500 mg PO BID DULoxetine HCL [Cymbalta] 30 mg PO DAILY Discontinued Warfarin [Coumadin] 5 mg PO WE Warfarin [Coumadin] 2.5 mg PO SUMOTUTHFR Discharge Medication List Atorvastatin [Lipitor] 80 mg PO HS 06/16/14 [History] Carvedilol [Coreg] 6.25 mg PO BID 06/16/14 [History] Famotidine [Pepcid] 10 mg PO DAILY 06/16/14 [History] LORazepam [Ativan] 0.5 mg PO DAILY@0800 06/16/14 [History] Multivitamins, Thera [Multivitamin (formulary)] 1 tab PO DAILY 06/16/14 [History ] Nitroglycerin Sl Tabs [Nitrostat] 0.4 mg SUBLINGUAL DIRECTED PRN 06/16/14 [ History] Spironolactone [Aldactone] 25 mg PO DAILY@0800 06/16/14 [History] Aspirin EC [Ecotrin Low Dose] 81 mg PO DAILY@0800 10/03/16 [History] Balsalazide Disodium 1,500 mg PO BID 12/24/17 [History] Sacubitril/Valsartan [Entresto 24 mg-26 mg Tablet] 1 tab PO BID 12/24/17 [ History] DULoxetine HCL [Cymbalta] 30 mg PO DAILY 10/10/18 [History] Follow up Appointment(s)/Referral(s): Leo Matthews MD [Primary Care Provider] - 3 Days Discharge Disposition: HOME WITH HOME HEALTH SERVICES
[2018-10-12] MEDS: BACITRACIN 500 UNIT/GM OINT 28.4 GM TUBE TOPICAL SCH (07:52)
[2018-10-12 08:13] VITALS: BP 112/59; PULSE 51; RESP 16; TEMP 97.6
[2018-10-12 09:21] LABS: Basophils % (A) 0 %; Eosinophils # (A) 0.2 k/uL (0-0.7); Eosinophils % (A) 2 %; HCT 34.3 % (39.0-53.0); HGB 11.3 gm/dL (13.0-17.5); Lymphocytes % (A) 12 %; MCH 32.8 pg (25.0-35.0); MCHC 32.8 g/dL (31.0-37.0); MCV 99.8 fL (80.0-100.0); Mean Platelet Volume 6.9; Monocytes # (A) 0.6 k/uL (0-1.0); Monocytes % (A) 7 %; Neutrophils # (A) 6.3 k/uL (1.3-7.7); Neutrophils % (A) 75 %; Platelet Count 208 k/uL (150-450); RBC 3.44 m/uL (4.30-5.90); RDW 13.3 % (11.5-15.5); WBC 8.4 k/uL (3.8-10.6)
[2018-10-12 09:32] LABS: Anion Gap 5 mmol/L; Blood Urea Nitrogen 11 mg/dL (9-20); Calcium 8.5 mg/dL (8.4-10.2); Carbon Dioxide 24 mmol/L (22-30); Chloride 107 mmol/L (98-107); Glucose 145 mg/dL (74-99); Potassium 3.8 mmol/L (3.5-5.1); Sodium 136 mmol/L (137-145)
[2018-10-12 09:33] LABS: INR 1.1 (<1.2)
[2018-10-12] MEDS: MULTIVITAMINS, THERA 1 EACH TAB PO SCH (12:58)
[2018-10-12] MEDS: SODIUM CHLORIDE 0.9% 1,000 ML IV SCH (12:58)
[2018-10-12] MEDS: DULoxetine HCL 30 MG CAPSULE.DR PO SCH (12:58)
== END 2018-10-12 13:50 | disposition home health service (06) ==
LOC: EC 09:57 → 4SSUR 13:13
PROVIDERS: ADMIT Family Medicine; ATTEND Family Medicine
DX: S30.1XXA Contusion of abdominal wall, initial encounter (principal); R79.1 Abnormal coagulation profile; I48.91 Unspecified atrial fibrillation; I25.10 Atherosclerotic heart disease of native coronary artery without angina pectoris; I11.9 Hypertensive heart disease without heart failure; I25.5 Ischemic cardiomyopathy; E78.5 Hyperlipidemia, unspecified; G47.30 Sleep apnea, unspecified; Z99.89 Dependence on other enabling machines and devices; M19.90 Unspecified osteoarthritis, unspecified site; Z98.49 Cataract extraction status, unspecified eye; F41.9 Anxiety disorder, unspecified; Z79.01 Long term (current) use of anticoagulants; Z79.82 Long term (current) use of aspirin; Z79.899 Other long term (current) drug therapy; Z95.810 Presence of automatic (implantable) cardiac defibrillator; I25.2 Old myocardial infarction; Z87.19 Personal history of other diseases of the digestive system; Z95.5 Presence of coronary angioplasty implant and graft; Z96.653 Presence of artificial knee joint, bilateral; Z80.9 Family history of malignant neoplasm, unspecified; Z91.81 History of falling
CPT/HCPCS: 96361 ×3; 96365; 96375; 99285; 36415; 93005; 97161; 80053 ×2; 80048; 85025 ×3; 85610 ×3; 85730; 81003; 74177; G0378 ×3; J3430; C9132; Q9967

== ENCOUNTER → 2020-11-08 | Outpatient (CLI) | payer MEDICARE, BC ==
--- NOTE | 2020-11-08 15:00 | US ---
EXAMINATION TYPE: US groin RT DATE OF EXAM: 11/08/2020 COMPARISON: NONE CLINICAL HISTORY: R10.31 RLQ PAIN. rt inguinal pain, assess for hernia Obvious herniation noted adjacent to EIV at area of patients complaint. With valsalva the area increa ses in size from 1.5cm to 3.4cm. IMPRESSION: Hernia as noted above.
== END | disposition home or self-care (01) ==
LOC: RADUSWWP 13:38
PROVIDERS: ATTEND Internal Medicine Gastroenterology
DX: K40.90 Unilateral inguinal hernia, without obstruction or gangrene, not specified as recurrent (principal)

== ENCOUNTER → 2021-11-14 | Outpatient (CLI) | payer MEDICARE, BC ==
--- NOTE | 2021-11-14 17:22 | CONS ---
CONSULTATION DATE OF SERVICE: 11/14/2021 This 86-year-old gentleman has been re-evaluated in [facility] for obstructive sleep apnea-hypopnea syndrome. HISTORY OF PRESENT ILLNESS/SLEEP-WAKE EVALUATION: This patient has had a history of obstructive sleep apnea-hypopnea syndrome for many years. The last time I saw him was in May of 2015. At that time we repeated titration and recommended treatment with BiPAP. The patient continues to use BiPAP equipment every night. His sleep schedule is from 11 p.m. to 7 a.m. He does have problems with falling asleep, has a TV set in the bedroom. He wake up from sleep once with nocturia. No snoring while he is using his machine. He may have episodes of restless legs. In the morning he may wake up tired, may fall asleep during the day, worries about his sleep, has problems with memory and anxiety. [place] Sleepiness Scale today is 5, which is normal. The patient usually does not take any naps. No history of hypnagogic hallucinations, sleep paralysis or cataplexy. I checked the patient's BiPAP unit. Pressure is 11/7 cm of water, usage 30/30 nights for more than 4 hours, average 8.7 hours per night. Leak is 31 L/minute. Apnea- hypopnea index is 6.0, including central apnea-hypopnea index 2.4. The patient is using Holder FX nasal pillows, large size, regular tube. PAST MEDICAL HISTORY: Positive for coronary artery disease, status post OR and stent insertion, pacemaker defibrillation insertion, CHF with low ejection fraction, hyperlipidemia, acid reflux. PAST SURGICAL HISTORY: Permanent pacemaker insertion, stent insertion to coronary artery. MEDICATIONS: Spironolactone, Entresto, carvedilol, duloxetine, atorvastatin, 81. SOCIAL HISTORY: Negative for smoking. Alcohol consumption occasional. FAMILY HISTORY: Positive for hypertension, heart problems. REVIEW OF SYSTEMS: Sometimes awakenings from sleep and difficulties initiating sleep. No fevers. No double vision. No recent chest pain. No shortness of breath. No abdominal pain. No bleeding episodes. No blood in the urine. No seizure episodes. PHYSICAL EXAMINATION: GENERAL: Pleasant gentleman without distress. VITAL SIGNS: BP 119/69, HR 59, RR 18, height 5 feet 7-1/2 inches, weight 195.2, body mass index 30, temperature 96.8, oxygen saturation at room air 100%. HEENT: PERRLA, EOMI, evaluation of oropharynx showed tongue protrudes midline. NECK: Supple, no JVD. Thyroid is not palpable. LUNGS: Clear to percussion and to auscultation. Good air exchange. No wheezing or rhonchi. HEART: S1, S2 regular. No murmurs, gallops, or rubs. ABDOMEN: Soft and nontender. Bowel sounds are present. No organomegaly appreciated. EXTREMITIES: No clubbing or cyanosis. TENT FINISHER: Awake, alert, and oriented X3. Cranial nerves 2 to 7 intact. There is no fasciculation or atrophy. noted. No focal deficits observed. IMPRESSION: 1. Obstructive sleep apnea-hypopnea syndrome. Patient demonstrated great compliance with treatment, benefitting from treatment. 2. Coronary artery disease, status post myocardial infarction and stent insertion. 3. Status post permanent pacemaker insertion. 4. History of congestive heart failure. 5. Hypertension. 6. History of restless leg symptoms. PLAN: 1. Patient will continue treatment with BiPAP every night for the whole night. 2. Prescription for all necessary BiPAP supplies, including Holder FX large-sized nasal pillow mask, tube filters and chamber for humidifier. 3. Watching weight. 4. No driving if feeling sleepiness. 5. Sleep hygiene with regular time in bed for 7-1/2 to 8 hours. 6. Follow-up visit in 6 months. 7. Air filter for CPAP needs to be changed immediately. Thank you very much for referring this patient for consultation. Sincerely, Pancho Chavez MD, PhD, FAASM Diplomat of [place] [employer] Sleep Medicine Board of [place] [employer] Security Project Manager of [facility] [place] MMODL / IJN: [id number] /
== END ==
LOC: SLEEP 13:29
PROVIDERS: ATTEND Internal Medicine
DX: G47.33 Obstructive sleep apnea (adult) (pediatric) (principal); I25.10 Atherosclerotic heart disease of native coronary artery without angina pectoris; I25.2 Old myocardial infarction; G25.81 Restless legs syndrome; I50.9 Heart failure, unspecified; I11.0 Hypertensive heart disease with heart failure; Z95.5 Presence of coronary angioplasty implant and graft; Z95.0 Presence of cardiac pacemaker; Z99.89 Dependence on other enabling machines and devices
CPT/HCPCS: 99211

== ENCOUNTER → 2022-01-23 | Outpatient (CLI) | payer MEDICARE ==
[2022-01-23 14:43] LABS: Basophils # (A) 0.06 X 10*3/uL (0.00-0.10); Basophils % (A) 0.6 %; Eosinophils # (A) 0.45 X 10*3/uL (0.04-0.35); Eosinophils % (A) 4.6 %; HCT 42.9 % (39.6-50.0); HGB 13.8 g/dL (13.0-17.0); Immature Grans, Automated 0.4 %; Lymphocytes # (A) 1.67 X 10*3/uL (0.90-5.00); MCH 32.2 pg (27.0-32.0); MCHC 32.2 g/dL (32.0-37.0); MCV 100.2 fL (80.0-97.0); Mean Platelet Volume 10.3 fL (9.5-12.2); Monocytes # (A) 1.06 X 10*3/uL (0.20-1.00); Monocytes % (A) 10.8 %; NRBC Per 100 WBC 0 /100 WBCS (0.0-0.0); Neutrophils # (A) 6.55 X 10*3/uL (1.80-7.70); Neutrophils % (A) 66.6 %; Platelet Count 198 X 10*3/uL (140-440); RBC 4.28 X 10*6/uL (4.40-5.60); RDW 13.3 % (11.5-14.5); WBC 9.83 X 10*3/uL (4.50-10.00)
[2022-01-23 14:54] LABS: Albumin 4.3 g/dL (3.8-4.9); Albumin/Globulin Ratio 2.01 (1.60-3.17); Anion Gap 11.4 mmol/L (10.00-18.00); BUN/Creat Ratio 18.16 Ratio (12.00-20.00); Blood Urea Nitrogen 16.8 mg/dL (9.0-27.0); Calcium 9.8 mg/dL (8.7-10.3); Carbon Dioxide 20.4 mmol/L (20.0-27.5); Globulin 2.1 g/dL (1.6-3.3); Non-African American GFR(CKD) 75.1 (60.0-200.0); Potassium 5.2 mmol/L (3.5-5.5); Total Bilirubin 0.6 mg/dL (0.30-1.20); Total Protein 6.5 g/dL (6.2-8.2)
== END | disposition home or self-care (01) ==
LOC: LABWHC1 09:06
PROVIDERS: ATTEND Internal Medicine Gastroenterology
DX: K51.90 Ulcerative colitis, unspecified, without complications (principal)
CPT/HCPCS: 36415; 80053; 85025

== ENCOUNTER → 2022-05-15 | Outpatient (CLI) | payer MEDICARE ==
--- NOTE | 2022-05-15 14:01 | P.PN ---
Subjective DATE: 05/15/2022 FOLLOW UP VISIT. Patient with obstructive sleep apnea hypopnea syndrome return to sleep center for follow-up visit. Patient is using PAP equipment every night for the whole night, getting PAP supplies in time. The patient does not have significant problems with the mask, PAP unit and humidification. [place] sleepiness scale is 12. I checkedBi PAP unit. PAP unit pressure at 11/7 cm H2O. Usage is 100 % for more then 4 hours, average 7.8 hours per night. Leak is 41 l/m, which is increased. Apnea Hypopnea Index is 7.6, which is slightly increased. MEDICATIONS:1. Spironolactone 2. Entresto 3. Carvedilol 4. Duloxetine 5. Aspirin 6. Atorvastatin During physical exam: GENERAL: A pleasant patient without any distress. VITAL SIGNS: BP 108/71, HR 61, RR 20 , weight 197, temperature 97.3, oxygen saturation at room air 95 . HEENT: PERRLA, EOMI.low position of soft palate, [] . NECK: Supple. No JVD. LUNGS: Clear to percussion and to auscultation. Good air exchange. No wheezing or rhonchi. HEART: S1, S2 regular. ABDOMEN: Soft and nontender.[] EXTREMITIES: No clubbing or cyanosis. RETAIL KEY HOLDER: Awake, alert, and oriented x3. No focal deficit. Impressions: 1. Obstructive sleep apnea-hypopnea syndrome. Patient demonstrated great compliance with treatment, benefiting from treatment. BiPAP unit is old. 2. Coronary artery disease, status post myocardial infarction, status post stent insertion. 3. History of CHF. 4. Hypertension. 5. History of RLS. 6. Status post permanent pacemaker insertion. Plan: 1. Continue using PAP equipment every night for the whole night. 2. To change air filter at least 1-2 times per month. 3. Prescription for new BiPAP unit with the maximal inspiratory pressure 13, minimal expiratory pressure 6, pressure support of 4 cm of water, autometic regimen. 4. Advised patient to remove all remaining water from humidifier canister daily and make it dry after each usage. Refill canister with fresh distilled water before each usage. 5. Sleep hygiene with regular time in bed for at least 8 hours. 6. Precautions related to driving. No driving if feel any sleepiness. 7. I will maintain prescription for PAP supplies including mask, tube, filters. 8. Follow up visit in 1 months off the patient will receive new BiPAP unit to check compliance with treatment and make any necessary adjustments if necessary. 9. Watching weight. Thank you very much for allowing me to participate in the management of your patient. Pancho Chavez MD, PhD, FAASM. Diplomat of [place] [employer], Sleep Medicine Board by [place] [employer] Clearing Distribution Clerk of [facility] [place]
== END ==
LOC: SLEEP 13:10
PROVIDERS: ATTEND Internal Medicine
DX: G47.33 Obstructive sleep apnea (adult) (pediatric) (principal); I25.10 Atherosclerotic heart disease of native coronary artery without angina pectoris; I25.2 Old myocardial infarction; G25.81 Restless legs syndrome; Z95.5 Presence of coronary angioplasty implant and graft; I50.9 Heart failure, unspecified; I11.0 Hypertensive heart disease with heart failure; Z95.0 Presence of cardiac pacemaker; Z79.82 Long term (current) use of aspirin; Z79.899 Other long term (current) drug therapy

== ENCOUNTER 2022-07-10 16:05 | Emergency (ER) | payer MEDICARE ==
[2022-07-10 17:03] VITALS: BP 99/68; PULSE 59; RESP 18; TEMP 98
--- NOTE | 2022-07-10 18:11 | CT ---
EXAMINATION TYPE: CT brain cspine wo con, CT facial bones wo con CT DLP: combined DLP 1218.8 mGycm, Automated exposure control for dose reduction was used. DATE OF EXAM: 07/10/2022 5:36 PM COMPARISON: 04/17/2018. CLINICAL INDICATION:Male, 86 years old with history of ; fall. Swelling and bruising around left eye and left side of face. TECHNIQUE: Brain: Multiple axial CT images of the brain were obtained without IV contrast. Cspine: Axial CT images from the skull base to the inferior aspect of T2 we obtained without intraven ous contrast. Coronal and sagittal reformatted images were also reviewed. Facial bones: Additional imaging of the facial bones with sagittal and coronal reformats were obtaine d. FINDINGS: FACIAL: Left cheek/periorbital subcutaneous hematoma measuring at least 4.8 x 1.8 by 5.1 cm. Streak artifact from the teeth slightly limits evaluation. There is no evidence of facial fracture. The intraconal ex traconal fat is unremarkable. Globes intact. Brain: Extra-axial spaces: No abnormal extra-axial fluid collections. 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 Ventricular system: Within normal limits Cerebral parenchyma: No acute intraparenchymal hemorrhage or mass effect. The link-white junction is well differentiated. Cerebellum: Unremarkable. Mass effect: No evidence of midline shift. Intracranial vasculature: Atherosclerotic calcifications of the intracranial vessels. Calvarium/osseous structures: No depressed skull fracture. Paranasal sinuses and mastoid air cells: Mild scattered mucosal thickening and or secretions. Visualized orbits: Bilateral aphakia Cervical spine: Fracture: None. Osseous structures: Multilevel degenerative disc disease changes with endplate spurring and disc oste ophyte complex's. Vertebral alignment: Scoliosis changes likely due to patient positioning. Spinal canal/Neural Foramina: No evidence of significant spinal canal narrowing. No evidence for sign ificant neural foraminal stenosis. Neck soft tissues: Prevertebral soft tissues are within normal limits. Other: The airway is patent. Atherosclerosis of the carotid bifurcations noted. IMPRESSION: 1. No acute intracranial process. 2. Left periorbital edema/hematoma without evidence of fracture. 3. No evidence of cervical spine fracture. 4. Moderate multilevel degenerative disc disease.
--- NOTE | 2022-07-10 19:53 | ED ---
General Adult HPI - General Source: patient, RN notes reviewed, old records reviewed Mode of arrival: ambulatory Limitations: no limitations <Aravind Campbell - Last Filed: 07/10/22 21:02> <Paul Forrest - Last Filed: 07/10/22 23:20> - General Chief complaint: Fall Stated complaint: lt eye Time Seen by Provider: 07/10/22 19:14 - History of Present Illness Initial comments: 86-year-old male presents status post fall. Patient was walking up his deck, fell striking his furniture. There was no loss consciousness. Patient hit the left side of his face. He was seen by his steerer today for routine appointment. His steerer rate question that he presented to the emergency department given the degree of facial trauma. Patient is on Coumadin. His INR was last checked about one week ago. No other injury reported. No significant pain. Fall occurred about 10 hours prior to evaluation. (Aravind Campbell) - Related Data Home Medications Medication Instructions Recorded Confirmed Atorvastatin [Lipitor] 80 mg PO HS 06/16/14 10/10/18 Carvedilol [Coreg] 6.25 mg PO BID 06/16/14 10/10/18 Famotidine [Pepcid] 10 mg PO DAILY 06/16/14 10/10/18 LORazepam [Ativan] 0.5 mg PO DAILY@79906/16/14 10/10/18 Multivitamins, Thera [Multivitamin 1 tab PO DAILY 06/16/14 10/10/18 (formulary)] Nitroglycerin Sl Tabs [Nitrostat] 0.4 mg SUBLINGUAL DIRECTED PRN 06/16/14 10/10/18 Spironolactone [Aldactone] 25 mg PO DAILY@0806/16/14 10/10/18 Aspirin EC [Ecotrin Low Dose] 81 mg PO DAILY@0810/03/16 10/10/18 Balsalazide Disodium 1,500 mg PO BID 12/24/17 10/10/18 Sacubitril/Valsartan [Entresto 24 1 tab PO BID 12/24/17 10/10/18 mg-26 mg Tablet] DULoxetine HCL [Cymbalta] 30 mg PO DAILY 10/10/18 10/10/18 Allergies Allergy/AdvReac Type Severity Reaction Status Date / Time No Known Allergies Allergy Verified 07/10/22 17:03 Review of Systems ROS Other: All systems not noted in ROS Statement are negative. <Aravind Campbell Lynne - Last Filed: 07/10/22 21:02> ROS Other: All systems not noted in ROS Statement are negative. <Paul Forrest - Last Filed: 07/10/22 23:20> ROS Statement: Those systems with pertinent positive or pertinent negative responses have been documented in the HPI. Past Medical History Past Medical History: Atrial Fibrillation, GI Bleed, Hyperlipidemia, Myocardial Infarction (IN), Sleep Apnea/CPAP/BIPAP Additional Past Medical History / Comment(s): sob with activity, colitis, arthritis, EF of 25, pace maker/defib,uses cpap,dizziness at times Last Myocardial Infarction Date:: 2007 History of Any Multi-Drug Resistant Organisms: None Reported Past Surgical History: AICD, Heart Catheterization With Stent, Joint Replacement, Pacemaker Additional Past Surgical History / Comment(s): anali knee replacments, rt shoulder rotator cuff, cataracts Past Anesthesia/Blood Transfusion Reactions: No Reported Reaction Additional Past Anesthesia/Blood Transfusion Reaction / Comment(s): father had reaction to blood transfusion Date of Last Stent Placement:: 2007 Type of Cardiac Device: Permanent Pacemaker, AICD Device Placement Date:: [facility] Past Psychological History: Anxiety Smoking Status: Never smoker Past Alcohol Use History: Occasional Past Drug Use History: None Reported - Past Family History Father Family Medical History: Cancer <Aravind Campbell Lynne - Last Filed: 07/10/22 21:02> General Exam Limitations: no limitations General appearance: alert, in no apparent distress Head exam: Present: other (Significant ecchymosis and hematoma of the left periorbital region and left cheek) Eye exam: Present: normal appearance, PERRL, EOMI, periorbital swelling, periorbital tenderness ENT exam: Present: normal exam Neck exam: Present: normal inspection. Absent: tenderness, meningismus Respiratory exam: Present: normal lung sounds bilaterally. Absent: respiratory distress Cardiovascular Exam: Present: regular rate, normal rhythm GI/Abdominal exam: Present: soft. Absent: distended, tenderness, guarding Neurological exam: Present: alert, oriented X3, CN II-XII intact. Absent: motor sensory deficit Psychiatric exam: Present: normal affect, normal mood Skin exam: Present: warm, dry, intact. Absent: cyanosis, diaphoretic <Aravind Campbell - Last Filed: 07/10/22 21:02> Course Vital Signs 07/10/22 17:00 Temperature 98 F Pulse Rate 59 L Respiratory 18 Rate Blood Pressure 99/68 O2 Sat by Pulse 96 Oximetry Medical Decision Making - Lab Data Result diagrams: 07/10/22 20:18 <Aravind Campbell - Last Filed: 07/10/22 21:02> - Lab Data Result diagrams: 07/10/22 20:18 <Paul Forrest - Last Filed: 07/10/22 23:20> - Medical Decision Making 86-year-old male with mechanical fall, injuring the right periorbital region and face. CT of facial bones is performed which shows hematoma without acute fracture. The orbit is intact. CT brain is performed which is negative for intracranial hemorrhage or mass effect. Cervical spine negative for fracture subluxation. I did obtain a CBC as well as a PT/INR as this patient is currently on Coumadin. Results pending, (Aravind Campbell) Patient was signed out to me with the plan of discharging home as long as the patient's INR was less than 5-6. Patient fell. Has a hematoma over the left side of his face. Appears stable based on pictures taken by the patient's from 5 hours ago, as well as based on Dr. Campbell's exam and sign out. Was already seen by ophthalmology. Like to go home if possible. Patient's hemoglobin is within normal limits patient. INR is elevated to 4.9. CT imaging was already performed and was negative for intracranial hemorrhage or mass effect. I discussed with the patient as well as his . Exam appears stable compared earlier. Patient's was in agreement. Patient will receive vitamin K, and I instructed him not to take his Coumadin today, tomorrow, and to have his INR checked on Friday before taking his Coumadin. He was in agreement with this plan. We'll provide him with a prescription for INR check. Strict return precautions were discussed including worsening bleeding, swelling. There were no agreement this plan. I instructed the patient to follow up with their PCP in the next 1-3 days. I explained that the patient should return to the emergency department if they experience any worsening symptoms. Strict return precautions were discussed with the patient. The patient expressed understanding of these instructions. I answered all questions that the patient had. The patient was discharged home in fair condition with their prescriptions and follow up information. (Paul Forrest) - Lab Data Lab Results 07/10/22 07/10/22 Range/Units 20:18 20:18 WBC 11.2 H (3.8-10.6) k/uL RBC 4.12 L (4.30-5.90) m/uL Hgb 13.4 (13.0-17.5) gm/dL Hct 40.9 (39.0-53.0) % MCV 99.4 (80.0-100.0) fL MCH 32.5 (25.0-35.0) pg MCHC 32.7 (31.0-37.0) g/dL RDW 12.6 (11.5-15.5) % Plt Count 220 (150-450) k/uL MPV 7.6 Neutrophils % 65 % Lymphocytes % 18 % Monocytes % 9 % Eosinophils % 3 % Basophils % 1 % Neutrophils # 7.3 (1.3-7.7) k/uL Lymphocytes # 2.0 (1.0-4.8) k/uL Monocytes # 1.0 (0-1.0) k/uL Eosinophils # 0.3 (0-0.7) k/uL Basophils # 0.2 (0-0.2) k/uL PT 48.8 H (9.0-12.0) sec INR 4.9 H (<1.2) APTT 45.1 H (22.0-30.0) sec Disposition Is patient prescribed a controlled substance at d/c from ED?: No <Aravind Campbell - Last Filed: 07/10/22 21:02> Is patient prescribed a controlled substance at d/c from ED?: No Time of Disposition: 21:20 <Paul Forrest - Last Filed: 07/10/22 23:20> Clinical Impression: Fall, Periorbital hematoma Disposition: HOME SELF-CARE Instructions (If sedation given, give patient instructions): Concussion (ED), Fall Prevention for Older Adults (ED), Hematoma (ED) Additional Instructions: Hold coumadin for 2 days until friday07-12-22, when you should have your INR re- checked. Return if any worsening symptoms including swelling, bleeding, pain. Referrals: Leo Matthews MD [Primary Care Provider] - 1-2 days
[2022-07-10 20:28] LABS: Basophils # (A) 0.2 k/uL (0-0.2); Basophils % (A) 1 %; Eosinophils # (A) 0.3 k/uL (0-0.7); Eosinophils % (A) 3 %; HCT 40.9 % (39.0-53.0); HGB 13.4 gm/dL (13.0-17.5); Lymphocytes % (A) 18 %; MCH 32.5 pg (25.0-35.0); MCHC 32.7 g/dL (31.0-37.0); MCV 99.4 fL (80.0-100.0); Mean Platelet Volume 7.6; Monocytes % (A) 9 %; Neutrophils # (A) 7.3 k/uL (1.3-7.7); Neutrophils % (A) 65 %; Platelet Count 220 k/uL (150-450); RBC 4.12 m/uL (4.30-5.90); RDW 12.6 % (11.5-15.5); WBC 11.2 k/uL (3.8-10.6)
[2022-07-10 20:46] LABS: INR 4.9 (<1.2); Partial Thromboplastin Time 45.1 sec (22.0-30.0); Prothrombin Time 48.8 sec (9.0-12.0)
[2022-07-10] MEDS ORDERED: PHYTONADIONE 5 MG in SODIUM CHLORIDE 0.9% 50 ML IVPB STA (21:07)
== END 2022-07-10 22:14 | disposition home or self-care (01) ==
LOC: EC 16:05
DX: S00.01XA Abrasion of scalp, initial encounter (principal); E78.5 Hyperlipidemia, unspecified; Z82.49 Family history of ischemic heart disease and other diseases of the circulatory system; W13.0XXA Fall from, out of or through balcony, initial encounter
CPT/HCPCS: 36415; 85025; 85610; 85730; 72125; 70486; 70450; 99284; 96365; J3430

== ENCOUNTER 2023-01-30 13:00 | Day surgery (SDC) | payer MEDICARE ==
[2023-01-30] MEDS ORDERED: SODIUM CHLORIDE 0.9% 500 ML 500 ML IV ONE (13:20)
[2023-01-30 13:21] VITALS: BP 110/70; PULSE 65; RESP 18; TEMP 97.7
[2023-01-30] MEDS ORDERED: IOPAMIDOL-370 100ML BTL INJ ONE (14:36)
--- NOTE | 2023-01-30 16:15 | P.EPPROC ---
- EP Procedure Note Electrophysiology Procedure Note: Procedure Cinefluoroscopy of the leads and left upper extremity venogram Cinefluoroscopy of the leads revealed atrial and ICD lead in stable position No fractures or breaks Left upper extremity venogram was performed. 50 mL every dye injected Occlusion at the subclavian axillary junction on the left side Long occlusion of the innominate vein before it enters the SVC Suggest Dual-chamber ICD generator change At a detailed discussion with the patient his and his daughter Options were discussed including the left-sided LV lead implant with tunneling under the skin I would recommend a dual-chamber ICD generator change only at this time with medical treatment
== END 2023-01-30 14:58 | disposition home or self-care (01) ==
LOC: CATHEP 13:00
PROVIDERS: ATTEND Internal Medicine Clinical Cardiac Electrophysiology
DX: I82.290 Acute embolism and thrombosis of other thoracic veins (principal); I82.B12 Acute embolism and thrombosis of left subclavian vein; Z95.810 Presence of automatic (implantable) cardiac defibrillator; I25.10 Atherosclerotic heart disease of native coronary artery without angina pectoris; I25.5 Ischemic cardiomyopathy; I11.0 Hypertensive heart disease with heart failure; I50.42 Chronic combined systolic (congestive) and diastolic (congestive) heart failure; I47.1 Supraventricular tachycardia; I44.7 Left bundle-branch block, unspecified; Z79.82 Long term (current) use of aspirin; Z79.899 Other long term (current) drug therapy
CPT/HCPCS: 36005; 75820; Q9967

== ENCOUNTER → 2023-03-07 | Outpatient (CLI) | payer MEDICARE ==
[2023-03-08 02:14] LABS: African American GFR (CKD) 78.6 (60.0-200.0); Anion Gap 10.2 mmol/L (10.00-18.00); Blood Urea Nitrogen 25.9 mg/dL (9.0-27.0); Carbon Dioxide 24.8 mmol/L (20.0-27.5); Non-African American GFR(CKD) 67.8 (60.0-200.0); Potassium 5.3 mmol/L (3.5-5.5)
[2023-03-08 02:29] LABS: Basophils # (A) 0.06 X 10*3/uL (0.00-0.10); Basophils % (A) 0.6 %; Eosinophils # (A) 0.42 X 10*3/uL (0.04-0.35); Eosinophils % (A) 4.4 %; HGB 13.3 g/dL (13.0-17.0); Immature Grans, Automated 0.3 %; Lymphocytes # (A) 1.61 X 10*3/uL (0.90-5.00); Lymphocytes % (A) 16.9 %; MCH 32.1 pg (27.0-32.0); MCHC 31.7 g/dL (32.0-37.0); MCV 101.4 fL (80.0-97.0); Mean Platelet Volume 10.3 fL (9.5-12.2); Monocytes % (A) 11.6 %; NRBC Per 100 WBC 0 /100 WBCS (0.0-0.0); Neutrophils % (A) 66.2 %; Platelet Count 198 X 10*3/uL (140-440); RBC 4.14 X 10*6/uL (4.40-5.60); RDW 13.2 % (11.5-14.5); WBC 9.52 X 10*3/uL (4.50-10.00)
== END | disposition home or self-care (01) ==
LOC: LABPAT 14:42
PROVIDERS: ATTEND Internal Medicine Clinical Cardiac Electrophysiology
DX: Z01.818 Encounter for other preprocedural examination (principal); I50.9 Heart failure, unspecified; I25.5 Ischemic cardiomyopathy
CPT/HCPCS: 80051; 82565; 84520; 85025

== ENCOUNTER 2023-03-10 05:54 | Day surgery (SDC) | payer MEDICARE ==
[~2023-03-10 05:54] MED LIST changes: -LACTATED RINGERS 1,000 ML IV SCH; +SODIUM CHLORIDE 0.9% 1,000 ML IV SCH
[2023-03-10] MEDS ORDERED: SODIUM CHLORIDE 0.9% 1,000 ML IV ONE (06:19)
[2023-03-10] MEDS ORDERED: ceFAZolin 1 GM in SODIUM CHLORIDE 0.9% IRRIG BTL 250 ML IRRIGATION PRN (07:00)
[2023-03-10 07:11] LABS: Calcium 9.6 mg/dL (8.4-10.2); Potassium 4.7 mmol/L (3.5-5.1)
[2023-03-10 07:28] LABS: HCT 42.9 % (39.0-53.0); HGB 14.1 gm/dL (13.0-17.5); MCH 33.1 pg (25.0-35.0); MCHC 32.8 g/dL (31.0-37.0); MCV 100.9 fL (80.0-100.0); Mean Platelet Volume 8.4; Platelet Count 205 k/uL (150-450); RBC 4.25 m/uL (4.30-5.90); RDW 12.8 % (11.5-15.5); WBC 9.5 k/uL (3.8-10.6)
[2023-03-10 08:18] LABS: Eosinophils # (M) 0.19 k/uL (0-0.7); Lymphocytes # (M) 1.52 k/uL (1.0-4.8); Monocytes # (M) 0.95 k/uL (0-1.0); Neutrophils # (M) 6.75 k/uL (1.3-7.7); Neutrophils % (M) 71 %; Nucleated Red Blood Cells 0 /100 WBC (0-0); Total Cells Counted 100
[2023-03-10 08:19] LABS: RBC Morphology Normal
[2023-03-10] MEDS ORDERED: VANCOMYCIN 1,250 MG in SODIUM CHLORIDE 0.9% 250 ML IVPB ONE (11:07)
[2023-03-10] MEDS ORDERED: CALCIUM CHLORIDE 100 MG/ML 10 ML SYRINGE ONE (12:10)
[2023-03-10] MEDS ORDERED: ROCURONIUM 10 MG/ML (5 ML VIAL) IV ONE (12:10)
[2023-03-10] MEDS ORDERED: GLYCOPYRROLATE 0.2 MG/ML 2 ML VIAL ONE (12:10)
[2023-03-10] MEDS ORDERED: PHENYLEPHRINE-0.9% NACL SYG 1,000 MCG/10 ML SYRINGE ONE (12:10)
[2023-03-10] MEDS ORDERED: ePHEDrine 50 MG/ML 1 ML VIAL ONE (12:10)
[2023-03-10] MEDS ORDERED: SUCCINYLCHOLINE CHLORIDE 200 MG/10 ML VIAL IV ONE (12:10)
[2023-03-10] MEDS ORDERED: ETOMIDATE 2 MG/ML 10 ML VIAL ONE (12:10)
[2023-03-10] MEDS ORDERED: fentaNYL (PF) 50 MCG/ML 2 ML AMP ONE (12:10)
[2023-03-10] MEDS ORDERED: NEOSTIGMINE 1 MG/ML 10 ML VIAL ONE (12:10)
[2023-03-10] MEDS ORDERED: IOPAMIDOL-370 100ML BTL INJ ONE (12:38)
[2023-03-10] MEDS ORDERED: LIDOCAINE 1% INJ 10MG/ML (20 ML MDV) SQ ONE ×2 (12:57→14:30)
--- NOTE | 2023-03-10 16:35 | P.EPPROC ---
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 Patent right subclavian venous system draining into the SVC Implantation of an LV lead in the anterior lateral vein via the right subclavian vein Tunneling of the LV lead across to the left side pectoral pocket Explantation of dual-chamber ICD, left pectoral Implantation of a biventricular ICD left-sided Extended procedure duration Details Patient was brought to the EP lab in a fasting state. Written informed consent was obtained prior to the procedure. Procedure performed under general anesthesia The entire chest was prepped and draped as a protocol. IV vancomycin followed by IV Kefzol infused. Right upper extremity venogram performed and was found to be patent. 15 mL IV dye injected A 3 cm incision was made in the right pectoral area and carried down to the level of the muscle. The right axillary vein was accessed. Sheaths placed. Coronary sinus sheath was placed. Coronary sinus cannulated. Venogram performed. Anterolateral and posterior lateral veins in the LV identified. [facility] LV lead was positioned successfully but after multiple attempts Since this was a right-sided implant, right-sided sheath was first used. However this would repeatedly slip out of coronary sinus and therefore was started left-sided sheath was used to provide better stability Multiple attempts were made to get the coronary sinus and to remain within the coronary sinus. Later lead positioning in the anterolateral vein required extra work to find the appropriate tributaries of vein for excellent stability and thresholds. However to get the lead in excellent position, multiple exchanges had to be made with the sheaths and vitals This lead wasn't tested. Excellent thresholds were noted. No diaphragmatic stimulation noted Lead secured with 2-lead sleeves on the pectoral muscle on the right side. The opposite side pectoral incision was made. The pocket was opened. The oral generator, dual-chamber ICD [facility] was explanted Leads were freed from the surrounding tissues. However they were heavily wrapped in capsular/scar tissue and therefore careful limited dissection was performed. Lead integrity was determined with pacing and sensing checks and impedance 6. These were found to be stable for the chronic atrial and ICD lead and this is a DFT 1-lead. [facility] [facility] The LV lead from the right side was tunneled under the skin to the left pectoral pocket and connected to the new generator The new [facility] generator was implanted, Bi V ICD The atrial and RV leads were also connected Both pockets and wounds were then closed in 3 layers and dressed per protocol The device was then programmed for Bi V pacing with an LV offset of 30 ms, AV synch turned on Appropriate antitachycardia pacing cardioversion and defibrillation programmed Patient tolerated the procedure well without any acute complications
[2023-03-10] MEDS ORDERED: ACETAMINOPHEN IV (For NPO) 1,000 MG in EMPTY BAG 1 BAG IVPB ONE (17:00)
[2023-03-10] MEDS: carvediloL 6.25 MG TAB PO SCH (17:51)
[2023-03-10] MEDS: BALSALAZIDE DISODIUM 750 MG CAPSULE PO SCH (19:58)
[2023-03-10] MEDS: SACUBITRIL/VALSARTAN 24 MG-26 MG TABLET PO SCH (19:58)
[2023-03-10] MEDS ORDERED: ATORVASTATIN 80 MG TAB PO SCH (21:00)
[2023-03-10] MEDS: ACETAMINOPHEN TAB 325 MG TAB PO PRN (23:42)
[2023-03-11 03:12] VITALS: RESP 18
[2023-03-11] MEDS: carvediloL 6.25 MG TAB PO SCH (05:59)
[2023-03-11] MEDS ORDERED: ASPIRIN 81 MG PO SCH (08:00)
[2023-03-11] MEDS ORDERED: SPIRONOLACTONE 25 MG TAB PO SCH (08:00)
--- NOTE | 2023-03-11 08:29 | XR ---
EXAMINATION TYPE: XR chest 1V portable DATE OF EXAM: 03/11/2023 COMPARISON: 10/03/2016 HISTORY: Lead placement check TECHNIQUE: Single frontal view of the chest is obtained. FINDINGS: There is a multilead cardiac device with biventricular leads suspected in right atrial nayan d. No sizable pneumothorax. Arthropathy of the shoulders with diffuse osteopenia. Underlying COPD, ca rdiomegaly and chronic interstitial lung disease is atherosclerotic change aorta. Scoliosis with mult ilevel degenerative disc disease. IMPRESSION: 1. No postprocedural complication. Multilead cardiac device noted in position.
[2023-03-11 08:40] VITALS: BP 100/60; PULSE 60; TEMP 98.1
[2023-03-11] MEDS ORDERED: DULoxetine HCL 30 MG CAPSULE.DR PO SCH (09:00)
[2023-03-11] MEDS ORDERED: FAMOTIDINE 20 MG TAB PO SCH (09:00)
[2023-03-11] MEDS: BALSALAZIDE DISODIUM 750 MG CAPSULE PO SCH (09:50)
[2023-03-11] MEDS: ACETAMINOPHEN TAB 325 MG TAB PO PRN (09:51)
[2023-03-11] MEDS: SACUBITRIL/VALSARTAN 24 MG-26 MG TABLET PO SCH (12:02)
--- NOTE | 2023-03-13 19:06 | P.DS ---
Providers Attending physician: Barney Gonzales Primary care physician: Leo Matthews [facility] Course: Mrs. Nagel is doing well. He does have discomfort in the left pectoral area as well as in the right pectoral area His device interrogation is within normal limits. LV thresholds were excellent He denies any undue shortness of breath or dizziness On examination minimal soakage and hematoma Blood pressure 130/68 mmHg pulse rate 60 afebrile Breath sounds are clear Normal heart sounds No pneumothorax and chest x-ray Impression Upgrade to a biventricular ICD for management of ischemic cardio myopathy, congestive heart failure, recent CHF exacerbation requiring hospitalization and and underlying left bundle branch block on 12-lead EKG Patient had a dual-chamber ICD in situ. Upgrade to a biventricular ICD performed Right-sided left ventricular lead implantation in the anterior lateral LV vein This lead was then tunneled under the skin and connected to a biventricular ICD generator in the left pectoral area Plan Discharge home after completion of IV antibiotics Follow up in the office in one week in the device clinic Continue cardiomyopathy medications Plan - Discharge Summary New Discharge Prescriptions: No Action Nitroglycerin Sl Tabs [Nitrostat] 0.4 mg SUBLINGUAL DIRECTED PRN PRN Reason: Chest Pain Spironolactone [Aldactone] 50 mg PO DAILY@0800 LORazepam [Ativan] 0.5 mg PO DAILY@0800 PRN PRN Reason: Anxiety Famotidine [Pepcid] 10 mg PO QAM Carvedilol [Coreg] 6.25 mg PO BID Atorvastatin [Lipitor] 80 mg PO HS Multivitamins, Thera [Multivitamin (formulary)] 1 tab PO DAILY Aspirin EC [Ecotrin Low Dose] 81 mg PO DAILY@0800 Sacubitril/Valsartan [Entresto 24 mg-26 mg Tablet] 1 tab PO BID Balsalazide Disodium 1,500 mg PO BID DULoxetine HCL [Cymbalta] 30 mg PO QAM Discharge Medication List Atorvastatin [Lipitor] 80 mg PO HS 06/16/14 [History] Carvedilol [Coreg] 6.25 mg PO BID 06/16/14 [History] Famotidine [Pepcid] 10 mg PO QAM 06/16/14 [History] LORazepam [Ativan] 0.5 mg PO DAILY@0800 PRN 06/16/14 [History] Multivitamins, Thera [Multivitamin (formulary)] 1 tab PO DAILY 06/16/14 [History] Nitroglycerin Sl Tabs [Nitrostat] 0.4 mg SUBLINGUAL DIRECTED PRN 06/16/14 [History] Spironolactone [Aldactone] 50 mg PO DAILY@0800 06/16/14 [History] Aspirin EC [Ecotrin Low Dose] 81 mg PO DAILY@0800 10/03/16 [History] Balsalazide Disodium 1,500 mg PO BID 12/24/17 [History] Sacubitril/Valsartan [Entresto 24 mg-26 mg Tablet] 1 tab PO BID 12/24/17 [History] DULoxetine HCL [Cymbalta] 30 mg PO QAM 10/10/18 [History] Follow up Appointment(s)/Referral(s): Barney Gonzales MD [STAFF PHYSICIAN] - 03/19/23 3:45 pm (Device clinic follow-up Follow Dr. Gonzales/Lizbeth Mckoy in 3 months) [facility] Visiting Nurse, [NON-STAFF] - 1 Week Patient Instructions/Handouts: Moderate Sedation (DC), Implantable Cardioverter Defibrillator (DC) Activity/Diet/Wound Care/Special Instructions: PATIENT EDUCATION MATERIAL Instructions following a heart rhythm device implant. 1. Keep dressing DRY for 5 DAYS. You may cover the area with Saran or Cling Wrap, prior to a shower. 2. The dressing will be removed in the Device Clinic at [facility]. Absorbable sutures were used to close the wound. 3. Avoid raising the left arm above the shoulder level. 4 week restriction 4. Avoid arm movements, like backscratching, rubbing the head, or pulling on a cord. 4 weeks restriction 5. Gentle range of motion movements of the shoulder, closest to the incision should be performed to avoid a frozen shoulder. (Pendulum exercises of the shoulder) 6. The opposite arm may be used freely. 7. Avoid driving for 7 days. 8. Avoid activities such as golfing, swimming, weed whacking, lifting more than 10 pounds weight, bowling, gymnastics and weight training/lifting. (6 weeks restriction) 9. Activities such as wood chopping with an axe, pull-ups in the gymnasium, power lifting, arc-welding, being close to home induction cooktops will always be a problem. 10. Arm sling is only a reminder not to raise the arm above the head. You do not need to keep the arm completely immobilized. Your free to move the arm and use it and for normal activities. In case of any problems, please call [facility], Evan Souza, @ [phone], Attention: Device Clinic Device clinic follow-up in 5 days Follow-up with primary punch press operator helper in 2-3 months Discharge Disposition: HOME SELF-CARE
== END 2023-03-11 14:41 | disposition home or self-care (01) ==
LOC: CATHEP 05:54 → 6NMEDSUR 15:38 → CATHEP 03-11 14:41
PROVIDERS: ATTEND Internal Medicine Clinical Cardiac Electrophysiology
DX: I25.5 Ischemic cardiomyopathy (principal); I44.7 Left bundle-branch block, unspecified; I11.0 Hypertensive heart disease with heart failure; I50.22 Chronic systolic (congestive) heart failure; Z79.82 Long term (current) use of aspirin; Z79.899 Other long term (current) drug therapy
CPT/HCPCS: 33225; 33263; 80048; 85025; 71045; C1769 ×5; C1892; C1730; C1887; C1900; C1882; J3370; J0330; J2710; J0690 ×2; J2001; J3010; J0131; J2370; Q9967; 33224; 33249

== ENCOUNTER → 2023-04-21 | Outpatient (CLI) | payer MEDICARE ==
--- NOTE | 2023-04-22 08:42 | XR ---
EXAMINATION TYPE: XR ankle complete RT DATE OF EXAM: 04/21/2023 COMPARISON: NONE HISTORY: Swelling FINDINGS: Three views of the ankle demonstrate the ankle mortise to be intact and symmetric. The joint spaces are preserved. The osseous structures are intact. Diffuse soft tissue edema. Metallic density adjac ent to the medial malleolus. IMPRESSION: 1. No definite acute fracture or dislocation, if symptoms persist follow-up study in 7 to 10 days wou ld be suggested. 2. There is diffuse soft tissue edema. Small metallic foreign body seen adjacent to the medial malleo moses. Correlate for cellulitis.
== END | disposition home or self-care (01) ==
LOC: RADXRMAIN 17:58
PROVIDERS: ATTEND Family Medicine
DX: R60.0 Localized edema (principal)

== ENCOUNTER → 2023-10-31 | Outpatient (CLI) | payer MEDICARE ==
[2023-10-31 18:51] LABS: HCT 38.9 % (39.6-50.0); HGB 12.7 g/dL (13.0-17.0); MCH 33.3 pg (27.0-32.0); MCHC 32.6 g/dL (32.0-37.0); MCV 102.1 FL (80.0-97.0); Mean Platelet Volume 10.6 FL (9.5-12.2); NRBC Per 100 WBC 0 X 10*3/uL (0.00-0.01); Platelet Count 155 X 10*3/uL (140-440); RBC 3.81 X 10*6/uL (4.40-5.60); WBC 7.37 X 10*3/uL (4.50-10.00)
[2023-10-31 19:01] LABS: ALT 17 U/L (10-49); AST 23 U/L (14-35); Alkaline Phosphatase 75 U/L (41-126); BUN/Creat Ratio 20.89 Ratio (12.00-20.00); Blood Urea Nitrogen 18.8 mg/dL (9.0-27.0); Calcium 9.3 mg/dL (8.7-10.3); Carbon Dioxide 24.9 mmol/L (21.6-31.8); Chloride 107 mmol/L (96-109); Globulin 1.6 g/dL (1.6-3.3); Glucose 98 mg/dL (70-110); Magnesium 1.9 mg/dL (1.5-2.4); Potassium 4.2 mmol/L (3.5-5.5); Sodium 142 mmol/L (135-145); Total Bilirubin 0.4 mg/dL (0.3-1.2); Total Protein 5.6 g/dL (6.2-8.2)
[2023-10-31 19:53] LABS: INR 1.06 sec (0.93-1.11); Prothrombin Time 11.4 sec (9.9-11.9)
== END | disposition home or self-care (01) ==
LOC: LABWHC1 14:27
PROVIDERS: ATTEND Internal Medicine
DX: I48.0 Paroxysmal atrial fibrillation (principal)
CPT/HCPCS: 36415; 80053; 83735; 85027; 85610

== ENCOUNTER 2023-12-25 10:44 | Day surgery (SDC) | payer MEDICARE ==
[2023-12-25] MEDS: SODIUM CHLORIDE 0.9% 500 ML 500 ML IV ONE (11:32)
[2023-12-25 12:02] VITALS: TEMP 97.4
[2023-12-25] MEDS ORDERED: fentaNYL (PF) 50 MCG/ML 2 ML AMP ONE (13:04)
[2023-12-25] MEDS: BENZOCAINE SPRAY 1 CAN TOPICAL ONE ×2 (13:17→13:18)
[2023-12-25] MEDS: fentaNYL (PF) 50 MCG/ML 2 ML AMP IVP ONE (13:18)
[2023-12-25] MEDS: MIDAZOLAM 2 MG/2 ML VIAL IVP ONE (13:18)
[2023-12-25 14:05] VITALS: PULSE 60; RESP 14
[2023-12-25 16:08] VITALS: BP 92/58
--- NOTE | 2023-12-25 17:44 | P.TEE ---
Date of Procedure: 12/25/23 Description of Procedure(s): Procedure performed: 1. Transesophageal Echocardiogram with color flow doppler, pulsed wave doppler and continuous wave doppler 2. Moderate conscious sedation. Sedation time 17 mins. 3. Bubble Study Indications: Post Watchman device PACO to evaluate any device related thrombus or any leaks. Patient has history of ischemic cardiomyopathy EF 25 to 30%, atrial fibrillation with increased fall risk. Due to his increased fall risk he underwent watchman at [facility]. Consent: I have discussed the risks, benefits and alternative therapies for the above-mentioned procedure. The patient has indicated understanding and acceptance of the risks of the procedure. Signed consent was obtained and was placed in the paper chart. Procedural Steps: Timeout was performed in usual fashion. Patient's heart rate, blood pressure, oxygen saturation and ECG were monitored. Benzocaine was sprayed liberally in the back of the throat. Bite block was placed between the jaw. 2 mg of Versed and 50 mcg of Fentanyl were administered intravenously. After achieving appropriate moderate conscious sedation, PACO probe was advanced without difficulty and without any immediate complications to the esophagus. PACO study was performed with color flow doppler, pulsed wave doppler and continuous wave doppler. The probe was then removed. Patient tolerated the procedure well. Patient was transferred to the post procedure area in stable and satisfactory condition. Throughout the procedure patient's heart rate, blood pressure, oxygen saturation and ECG were monitored. Total sedation time 17 mins. Complications: none FINDINGS Left Atrium: Moderately increased LA size.. No evidence of mass or thrombus seen Left Atrial Appendage: Watchman device in place. No evidence of device related thrombus. Small leak from posterior superior aspect of the Watchman device. Inter atrial septum: Intact inter-atrial septum with no evidence of atrial septal defect or patent foramen ovale. Left Ventricle: Globally reduced LV systolic function with EF around 25% Right Atrium: Normal overall RV size Right Ventricle: Normal global RV size and systolic function Aortic Valve: Calcific trileaflet aortic valve with evidence of mild to moderate stenosis. Mild aortic regurgitation. low-flow low gradient state. Mean gradient estimated around 10 mmHg Mitral Valve: Mild functional MR. Pulmonic Valve: Not well visualized. Tricuspid Valve: Structurally normal. Moderate TR Ascending aorta, Aortic root and Aortic arch: Normal size aortic root and ascending aorta. CONCLUSION: Small leak into left atrial appendage through supero-posterior margin of the Watchman device No evidence of device related thrombus Moderate left atrial dilatation Severely reduced global LV systolic function with EF around 25% Mild functional MR Mild to moderate calcific aortic stenosis with mean gradient of 10 mmHg with low flow state. Mild aortic insufficiency Bay Vázquez MD, RPVI, FACC Thank you for allowing [facility] to participate in this patient's care. Feel free to reach out in case of any followup questions.
== END 2023-12-25 15:02 | disposition home or self-care (01) ==
LOC: CATHCVL 10:44
PROVIDERS: ATTEND Student in an Organized Health Care Education/Training Program
DX: I25.10 Atherosclerotic heart disease of native coronary artery without angina pectoris (principal); I48.0 Paroxysmal atrial fibrillation; I44.7 Left bundle-branch block, unspecified; I50.9 Heart failure, unspecified; L03.116 Cellulitis of left lower limb; Z79.01 Long term (current) use of anticoagulants; Z79.82 Long term (current) use of aspirin; Z79.899 Other long term (current) drug therapy; Z95.5 Presence of coronary angioplasty implant and graft
CPT/HCPCS: 99152; 93312; 93320; 93325; J2250; J3010

== ENCOUNTER → 2024-01-14 | Outpatient (CLI) | payer MEDICARE ==
--- NOTE | 2024-01-14 20:51 | CT ---
EXAMINATION TYPE: CT brain w con CT DLP: 1133.3 mGycm, Automated exposure control for dose reduction was used. DATE OF EXAM: 01/14/2024 3:26 PM COMPARISON: CT brain 07/10/2022. CLINICAL INDICATION:Male, 88 years old with history of G45.9 TIA; PHH, TIA. Dizziness. TECHNIQUE: Axial CT images of the brain were obtained with coronal and sagittal reformats created and reviewed. Contrast used:100ml mL of Isovue 370 with IV Contrast, Oral contrast used: none. FINDINGS: Extra-axial spaces: No abnormal extra-axial fluid collections. Ventricular system: Within normal limits Cerebral parenchyma: Cerebral atrophy. No acute intraparenchymal hemorrhage or mass effect. The link -white junction is well differentiated. Scattered hypoattenuating areas are seen within the white mat ter. No abnormal enhancement is seen after the administration of intravenous contrast. Cerebellum: Slight asymmetry in cerebellar hemispheres with the left smaller than the right. This fin ding is stable. Mass effect: No evidence of midline shift. Intracranial vasculature: Atherosclerotic calcifications of the intracranial vessels. Soft tissues: Normal. Calvarium/osseous structures: No depressed skull fracture. Paranasal sinuses and mastoid air cells: Clear. Visualized orbits: Bilateral aphakia IMPRESSION: 1. No acute intracranial process. 2. Stable chronic white matter disease and parenchymal atrophy.
== END | disposition home or self-care (01) ==
LOC: RADCTMAIN 14:51
PROVIDERS: ATTEND Internal Medicine Geriatric Medicine
DX: R90.82 White matter disease, unspecified (principal)
CPT/HCPCS: 70460; Q9967